=== PATIENT | male | born 1955 | race Caucasian/White ===

== ENCOUNTER 2019-07-22 14:13 | Observation (INO) | payer BC, SELFPAY ==
[2019-07-22 14:47] VITALS: BP 130/78; PULSE 59; RESP 18; TEMP 36.7; O2SAT 98; BMI 25.0
--- NOTE | 2019-07-22 14:56 | CA_ITS ---
APPROVED REPORT Meter Changes Records Clerk: HARVINDER Laterality: Bilateral Study Quality: Excellent Indications: tia Doppler Spectral Velocity Analysis dICA (R) 59.10/19.40 cm/s dICA (L) 72.30/25.90 cm/s Liat (R) 48.70/14.20 cm/s Liat (L) 67.50/17.10 cm/s pICA (R) 44.70/11.60 cm/s pICA (L) 84.40/24.20 cm/s dCCA (R) 76.20/14.50 cm/s dCCA (L) 105.70/19.40 cm/s pCCA (R) 90.00/18.40 cm/s pCCA (L) 107.70/21.30 cm/s Vert (R) 66.80/17.90 cm/s Vert (L) 59.10/19.70 cm/s ICA/CCA 0.80 ICA/CCA 0.80 Findings The right carotid arterial system appeared to be normal without stenosis of the bulb or internal carotid artery. The left carotid arterial system appeared to be normal without stenosis of the bulb or internal carotid artery. Antegrade flow seen bilateral vertebral arteries. Conclusion The right carotid arterial system appeared to be normal without stenosis of the bulb or internal carotid artery. The left carotid arterial system appeared to be normal without stenosis of the bulb or internal carotid artery. Antegrade flow seen bilateral vertebral arteries. Electronically signed by : Patrick Nunez MD 07/24/2019 16:45:06
--- NOTE | 2019-07-22 14:56 | CA_ITS ---
APPROVED REPORT EXAM: Comprehensive 2D, Doppler, and color-flow Echocardiogram Geodetic Technician: Betite Hall RT(R) Ht: 5 ft 10 in Wt: 174lbs BSA: 1.97 BP: 137/78 mmHg Indications: TIA 2D Dimensions LVDd 1.76 cm M: 4.2 - 5.9 M-Mode Dimensions RVDd 2.08 cm (0.9-2.6) LVDd 1.76 cm (3.5-5.7) LVDs 2.69 cm (3.5-5.7) IVSd 1.11 cm (0.6-1.1) PWd 1.22 cm (0.6-1.1) EF (Teich) 60.50% FS 31.90% EDV (Teich) 67.90 mL ESV (Teich) 26.80 mL LV Diastology E/A Ratio 1.17 Mitral Valve MV A Velocity 50.00 (40-130 cm/s) Left Ventricle Left atrium is mildly enlarged, left ventricle is normal size, there is no concentric left ventricular hypertrophy, visually estimated ejection fraction 55% with no regional wall motion abnormality, diastolic parameters are inconclusive. Right Ventricle Right atrium and right ventricular normal size and contractility. Aortic Valve Aortic valve is minimally thickened and fibrosed, there is no aortic stenosis or aortic insufficiency. Mitral valve is grossly normal, there is mild mitral regurgitation. Tricuspid Valve Tricuspid valve grossly normal, there is mild tricuspid regurgitation. Pulmonic Valve Pulmonic valve is poorly visualized. Great Vessels Aortic root is normal size. No significant pericardial effusion noted. Conclusion 1. Mildly enlarged left atrium, normal left ventricular size, visually estimated ejection fraction 55% with no regional wall motion abnormality, diastolic parameters are inconclusive. 2. Mild mitral and tricuspid regurgitation. 3. No significant pericardial effusion noted. Electronically signed by : Ken Abad, 07/22/2019 19:32:43
--- NOTE | 2019-07-22 14:59 | HMH.PNCARD ---
Subjective Date: 07/22/19 Time: 14:59 Principal diagnosis: Amaurosis fugax, recurrent TIA Interval history: 64 yo WM seen in office today as new patient for symptomatic carotid artery disease with amaurosis fugax of right eye and numbness/tingling of LUE over the last 1-2 wks despite both ASA and plavix therapy. Admitted for further evaluation and IV heparin therapy. Exam Vital signs and Labs for Last 24 Hours: Temp Pulse Resp BP Pulse Ox 98.0 F 59 L 18 130/78 98 07/22/19 14:47 07/22/19 14:47 07/22/19 14:47 07/22/19 14:47 07/22/19 14:47 I & O for Last 24 hours: Intake & Output 07/20/19 07/21/19 07/22/19 07/23/19 11:59 11:59 11:59 11:59 Weight 174 lb 3 oz - *Routine HEENT Exam Head: Present: normocephalic Eye: Present: EOMI, PERRL ENT: Present: mucous membranes moist - *Routine Neck Exam Present: supple. Absent: JVD, carotid bruit - *Routine Respiratory Exam Present: CTA bilaterally. Absent: accessory muscle use, rales, rhonchi, wheezes - *Routine Cardiovascular Exam Present: RRR. Absent: murmur, gallop, rubs - *Routine Abdominal Exam Present: soft. Absent: tenderness, distended, guarding - *Routine Extremities Exam Absent: edema, calf tenderness - *Routine Neurological Exam Present: alert, oriented X3, CN II-XII intact, moving all extremities, normal speech. Absent: motor deficit Progress Note: A&P (1) Amaurosis fugax of right eye Status: Acute Current Visit: Yes (2) TIA (transient ischemic attack) Status: Acute Current Visit: No (3) Numbness and tingling in left arm Status: Acute Current Visit: No (4) Hypertension Status: Acute Current Visit: Yes (5) Ex-smoker Status: Acute Current Visit: No (6) Frequent headaches Status: Acute Current Visit: No (7) GERD (gastroesophageal reflux disease) Status: Acute Current Visit: No Assessment and Plan for All Diagnoses:: 1. start IV heparin per pharmacy 2. Carotid ultrasound now and echo today. 3. Routine labs including CBC, BMP, thyroids 4. Likely will need carotid angiogram tomorrow pending above results 5. Continue lisinopril and pantoprazole
--- NOTE | 2019-07-22 15:29 | HMH.PHAINT ---
home medication reconciliation completed using a list from [facility]
--- NOTE | 2019-07-22 15:30 | HMH.PHAVTE ---
[facility] Pharmacy VTE Monitoring - Patient Demographics Admission date: 07/22/19 Report Date: 07/22/19 Time: 15:30 Allergies/Adverse Reactions: Patient Allergies No Known Allergies Allergy (Verified 07/22/19 13:16) Height: 1.78 m Weight: 79.01 kg Patient Problems: Current Active Problems Amaurosis fugax of right eye (Acute) Hypertension (Acute) - VTE Risk Was VTE Risk Assessment Performed: Yes VTE Score: 2 VTE Risk Level: Very Low Risk Clinical Trial Participant: No - Prophylaxis VTE Prophylaxis Ordered?: Yes Types of VTE Prophylaxis: TEDS Knee High Location of Applied Device: Bilateral Lower Extremeties
[2019-07-22 15:31] VITALS: PULSE 59; RESP 18; O2SAT 98
--- NOTE | 2019-07-22 15:47 | HMH.PHAHEP ---
[facility] Pharmacy Heparin Dosing - Demographic Data Admission date:: 07/22/19 Date: 07/22/19 Time: 15:47 Allergies/Adverse Reactions: Allergies Allergy/AdvReac Type Severity Reaction Status Date / Time No Known Allergies Allergy Verified 07/22/19 13:16 Height: 1.78 m Weight: 79 kg - Indication Medication therapy:: Heparin Patient Problems: Current Active Problems Amaurosis fugax of right eye (Acute) Hypertension (Acute) CVA?: No Bleeding problem?: No Kidney disease?: No MN?: No Desired PTT range:: 60-80 seconds - Monitoring Dose Monitor 1 Date: 07/22/19 Time: 16:00 PTT Result:: PTT NOT RECORDED. LOVENOX ORDERED AT 2044. Infusion Rate:: 1,000 UNITS/HR Comment:: 4,000 UNIT BOLUS Dose Monitor 2 Date: 07/22/19 Time: 22:00 Comment:: HEPARIN DRIP DISCONTINUED. LOVENOX ORDERED. - Core Measures Is INR > or = 2 at discharge?: No Were Heparin and Warfarin started on the same day?: No If not, why?: LOVENOX ORDERED
[2019-07-22 16:22] LABS: Basophils % 0.4 % (0.1-2.0); Eosinophils # 0.2 K/mm3 (0.0-0.4); Eosinophils % 2.3 % (0.1-12.0); Lymphocytes # 2.5 K/mm3 (0.7-4.5); Lymphocytes % 30.9 % (10-50); Mean Corpuscular HGB Conc 34.1 g/dL (31.8-35.4); Mean Corpuscular Hemoglobin 32.5 pg (27.0-31.2); Mean Corpuscular Volume 95.1 fl (80-94); Mean Platelet Volume 7.7 fl (7.4-10.4); Monocytes # 0.4 K/mm3 (0.1-1.0); Monocytes % 5.2 % (1.7-9.3); Neutrophils % 61.2 % (37.0-80.0); Platelet Count 288 K/mm3 (142-424); Red Blood Count 4.31 M/mm3 (4.60-6.20); Red Cell Distribution Width 12.6 % (11.5-17.5); White Blood Count 8.2 K/mm3 (4.8-10.8)
[2019-07-22 16:37] LABS: Alanine Aminotransferase 10 U/L (12-78); Albumin Level 3.4 g/dl (3.5-5.0); Alkaline Phosphatase 70 U/L (38-126); Anion Gap 7.2 mEq/L (5-15); Aspartate Amino Transferase 20 U/L (17-59); Bilirubin,Indirect 0.2 mg/dL (0.0-0.9); Bilirubin,Total 0.2 mg/dl (0.2-1.3); Bilirubin,Unconjugated 0.2 mg/dL (0.0-1.1); Blood Urea Nitrogen 11 mg/dl (9-20); Calcium 7.7 mg/dl (8.4-10.2); Carbon Dioxide 26 mmol/L (22.0-30.0); Chloride 111 mmol/L (98-107); Creatinine Clearance Estimated 83 mL/min (50-200); Estimated Glomerular Filt Rate 136 ml/min (>60); GFR (African American) 164 ML/MIN (>60); Glucose 69 mg/dl (74-100); Potassium 3.2 mmoL/L (3.5-5.1); Sodium 141 mmol/L (136-145); Total Protein,Serum 5.9 g/dl (6.3-8.2)
[2019-07-22 16:43] LABS: C-Reactive Protein 13.8 mg/L (0-4)
[2019-07-22 17:18] LABS: Erythrocyte Sedimentation Rate 63 mm/hr (0-20)
--- NOTE | 2019-07-22 17:21 | PC.NURSE ---
Pt was a new admit this shift. A&O X4. Pleasant and cooperative. 20 G peripheral IV inserted in the RT hand noted to be patent with no s/s of infiltration. NS infusing @ 50 ML/HR. Heparin infusing @ 20 ML/HR. Assessment reveals no abnormal findings. Pt ambulates throughout the room and to the bathroom independently. Pt's is currently at bedside. No complaints of pain or SOA. VSS. Call light within reach. Will continue to monitor.
[2019-07-22 19:53] VITALS: BP 148/80; PULSE 63; RESP 16; TEMP 36.4; O2SAT 97
--- NOTE | 2019-07-22 19:58 | CT_ITS ---
Procedure: CT ANGIO NECK CLINICAL HISTORY: TIA Headache, TIA, hypertension COMPARISON: No exams were available for comparison TECHNIQUE: IV Contrast: 100ml Optiray 350 Axial images obtained with sagittal and coronal reformats. All CT scans at the facility use one or more dose reduction, viz: automated exposure control, ma/kV adjustment per patient size (including targeted exams where dose is matched to indication, i.e. head), or iterative reconstruction technique. FINDINGS: The aortic arch and great vessels have an unremarkable appearance. The common carotids and vertebrals have an unremarkable appearance. The internal carotids are unremarkable. No stenosis, ulcerating plaques, or aneurysms are evident. No significant atherosclerotic plaque. Non angiographic findings: 3 mm nodule right upper lobe posteriorly. 3 mm noncalcified nodule left apex posteriorly the there are few scattered small mediastinal nodes but no adenopathy. Scattered small nodes are present in the neck. No mass abnormal fluid collection or acute bony anomalies. There is mild degenerative disc disease at C6-C7. IMPRESSION: Negative CT angiogram of the neck No stenosis or occlusion Dictated by: Patrick Nunez MD 07/23/2019 10:18 Electronically signed by Patrick Nunez MD in [place] 07/23/2019 10:18
--- NOTE | 2019-07-22 19:58 | CT_ITS ---
Procedure: CT ANGIO HEAD CLINICAL HISTORY: TIA TIA ease, hypertension, headache COMPARISON: No exams were available for comparison TECHNIQUE: IV Contrast: 100ml Optiray 350 Axial images obtained with sagittal and coronal reformats. All CT scans at the facility use one or more dose reduction, viz: automated exposure control, ma/kV adjustment per patient size (including targeted exams where dose is matched to indication, i.e. head), or iterative reconstruction technique. FINDINGS: No aneurysm, arteriovenous malformation or major intracranial occlusive process apparent. Vertebral basilar system has an unremarkable appearance. [id number] is patent. No evidence of sinus thrombosis No enhancing lesions. IMPRESSION: Negative CTA of the brain Dictated by: Patrick Nunez MD 07/23/2019 10:24 Electronically signed by Patrick Nunez MD in [place] 07/23/2019 10:24
[2019-07-22 20:00] VITALS: O2SAT 97
--- NOTE | 2019-07-22 21:01 | HMH.HP ---
*Admission Date: 07/22/19 *Chief complaint: tia *History of present illness: this wm has had several episodes of dec vision rt eye and dec use and sensation lt upper ext - pt w/o speech or lower ext sx - pt w/o chest pain- pt was seen by temo-ricki handley, recurrent Tia 64 yo WM seen in office today as new patient for symptomatic carotid artery disease with amaurosis fugax of right eye and numbness/tingling of LUE over the last 1-2 wks despite both ASA and plavix therapy. Admitted for further evaluation and IV heparin therapy. [facility] History I have reviewed the patient's past medical history: Yes Medical History: Reports:: Gastroesophageal Reflux Disease(GERD), Hypertension Denies:: Cancer, Diabetes Mellitus Type 1, Diabetes Mellitus Type 2, MRSA *Have you ever received a pneumonia vaccine?: Yes *Have you received a flu vaccine this season?: Yes Other Medical History: Reports: Arthritis Laterality Cases: Bilateral: Arthroscopy Knee Other Surgeries: Yes: Cholecystectomy Amputation: No Fractures: No - *Social History Educational Level: Completed High School Smoking Status: Former smoker Tobacco Type: cigarettes Alcohol Intake: current Alcohol Intake Frequency:: holidays/special occasions only Substance Use Type: denies use *Occupational Status:: employed Housing: house Household Members: spouse *Travel in the last 8 weeks: None Family Hx:: Diabetes, Heart Attack Review of Systems - Review of Systems Review of systems:: pertinent systems reviewed and negative unless documented below - Constitutional Denies fever(s) - Eyes Reports change in vision - ENT Denies dry mouth, Denies sore throat - *Cardiovascular Denies chest pain at rest - *Respiratory Denies cough, Denies shortness of breath - *Gastrointestinal Denies abdominal pain - *Genitourinary Denies blood in urine - *Musculoskeletal Denies joint pain, Denies neck pain - Integumentary/Breasts Denies rash - *Neurologic Reports other visual disturbances, Reports tingling/numbness/burning sensations, Denies seizure-like activity, Denies dizziness, Denies headache(s) - Psychiatric Denies anxiety Meds Home Medications Medication Instructions Recorded Confirmed Type Aspirin [Aspirin 325mg Tab] 325 mg PO DAILY 07/22/19 07/22/19 History celecoxib 200 mg capsule 200 mg PO DAILY cap 07/22/19 07/22/19 History clopidogrel 75 mg tablet 75 mg PO DAILY tab 07/22/19 07/22/19 History lisinopril 20 mg tablet 20 mg PO DAILY tab 07/22/19 07/22/19 History pantoprazole 40 mg tablet,delayed 40 mg PO DAILY tab 07/22/19 07/22/19 History release Allergies Allergy/AdvReac Type Severity Reaction Status Date / Time No Known Allergies Allergy Verified 07/22/19 13:16 Exam Vital signs and Labs for Last 24 Hours: Temp Pulse Resp BP Pulse Ox 97.5 F L 63 16 148/80 H 97 07/22/19 19:53 07/22/19 19:53 07/22/19 19:53 07/22/19 19:53 07/22/19 20:00 Laboratory Results - last 24 hr 07/22/19 15:55: ESR 63 H 07/22/19 15:55: C-Reactive Protein 13.8 H 07/22/19 15:55: WBC 8.2, RBC 4.31 L, Hgb 14.0 L, Hct 41.0 L, MCV 95.1 H, MCH 32.5 H, MCHC 34.1, RDW 12.6, Plt Count 288, MPV 7.7, Neut % (Auto) 61.2, Lymph % (Auto) 30.9, [place] % (Auto) 5.2, Eos % (Auto) 2.3, Baso % (Auto) 0.4, Neut # (Auto) 5.0, Lymph # (Auto) 2.5, [place] # (Auto) 0.4, Eos # (Auto) 0.2, Baso # (Auto) 0.0 07/22/19 15:55: Sodium 141, Potassium 3.2 L, Chloride 111 H, Carbon Dioxide 26, Anion Gap 7.2, BUN 11, Creatinine 0.60 L, Estimated Creat Clear 83, Estimated GFR 136, Est GFR ( Amer) 164, Glucose 69 L, Calcium 7.7 L, Total Bilirubin 0.2, Direct Bilirubin 0.0, Conjugated Bilirubin 0.0, Indirect Bilirubin 0.2, Unconjugated Bilirubin 0.2, AST 20, ALT 10 L, Alkaline Phosphatase 70, Total Protein 5.9 L, Albumin 3.4 L I & O for Last 24 hours: Intake & Output 05/07/21/19 07/22/19 07/23/19 11:59 11:59 11:59 11:59 Intake Total 136 / 136 Balance 136 / 136 Weight
[2019-07-22 22:21] LABS: Free Thyroxine Index 2.2 ug/dL (5.93-13.13); T4 (Thyroxine) 7.1 ug/dl (5.53-11.0); Triiodothryronine (T3) Uptake 31 % (23.5-40.5)
[2019-07-22 22:34] LABS: Thyroid Stimulating Hormone 2.15 uIU/mL (0.465-4.68)
[2019-07-23 03:58] VITALS: BP 154/87; PULSE 67; RESP 16; TEMP 36.6; O2SAT 96
--- NOTE | 2019-07-23 04:10 | PC.NURSE ---
Pt is A&Ox4 and has ambulated independently t/o shift and tolerated well. Pt has c/o headache 1x, medicated with Tylenol PO. Pt has denied any further vision complications. Regular heart rate and rhythm noted on cardiac auscultation. No edema noted of JVD. Lungs CTA, room air sats 96-97% t/o shift. Pt denies any SOB or dyspnea. Pt denies any N/V/D ABD is soft, non-tender with active bowel sounds, and pt reports last BM was 07/22/[address] to BLE. Heparin gtt discontinued at the beginning of the shift per [place] and new order for Lovenox and CT of head and neck with contrast. CT scans were completed this shift and pt tolerated well. New IV placed to pt's left AC. VSS, call light within reach, will continue to monitor.
--- NOTE | 2019-07-23 04:21 | PC.NURSE ---
All care provided by Claudio STEWART was supervised by Amee Ruggiero RN
[2019-07-23 05:14] VITALS: BMI 24.9
[2019-07-23 06:32] LABS: Chloride 107 mmol/L (98-107); Potassium 3.8 mmoL/L (3.5-5.1); Sodium 140 mmol/L (136-145)
[2019-07-23 06:35] LABS: Anion Gap 8.8 mEq/L (5-15); Blood Urea Nitrogen 11 mg/dl (9-20); Carbon Dioxide 28 mmol/L (22.0-30.0); Cholesterol 154 mg/dl (140-200); Creatinine Clearance Estimated 83 mL/min (50-200); Estimated Glomerular Filt Rate 114 ml/min (>60); GFR (African American) 137 ML/MIN (>60); Glucose 91 mg/dl (74-100); Triglycerides 74 mg/dl (30-150); VLDL Cholesterol 15 mg/dL (0-40)
[2019-07-23 06:36] LABS: Chol/HDL Ratio 2.4 (1-3.5); HDL Cholesterol 63 mg/dl (40-60)
[2019-07-23 06:46] LABS: Direct LDL Cholesterol 87.43 mg/dL (100-129)
[2019-07-23 06:49] LABS: Calcium 8.8 mg/dl (8.4-10.2)
[2019-07-23 07:06] LABS: Basophils % 0.3 % (0.1-2.0); Eosinophils # 0.3 K/mm3 (0.0-0.4); Hematocrit 40.3 % (42.0-52.0); Hemoglobin 13.9 g/dL (14.1-18.0); Lymphocytes # 3.1 K/mm3 (0.7-4.5); Lymphocytes % 34.6 % (10-50); Mean Corpuscular HGB Conc 34.4 g/dL (31.8-35.4); Mean Corpuscular Hemoglobin 31.7 pg (27.0-31.2); Monocytes # 0.5 K/mm3 (0.1-1.0); Neutrophils # 5.1 K/mm3 (1.8-7.8); Neutrophils % 57.1 % (37.0-80.0); Platelet Count 270 K/mm3 (142-424); Red Blood Count 4.38 M/mm3 (4.60-6.20)
[2019-07-23 08:00] VITALS: BP 138/82; PULSE 60; RESP 16; TEMP 36.8; O2SAT 98
--- NOTE | 2019-07-23 11:32 | HMH.PNCARD ---
Subjective Date: 07/23/19 Time: 11:10 Principal diagnosis: Amaurosis fugax, recurrent TIA Interval history: This is a 64-year-old white gentleman who was admitted to the hospital for questionable TIAs and amaurosis fugax. The patient did undergo a carotid ultrasound which was negative for carotid artery stenosis. He also had a CT of the head and a CT of the neck which was unremarkable and showed no stenosis of the internal carotid arteries. The patient CRP and sed rate are both elevated. He does complain of having joint pain all over his body. He was being treated for rheumatoid arthritis and was started on Celebrex and steroids several months ago. He states he has not been on steroids for at least 2 months or longer. The patient reports that he does get headaches especially at the back of his head. He states that he also does have jaw pain. He notices the more he eats the more sore his jaws do become. We do suspect that the patient has temporal arteritis since his ischemic work-up was negative. He denies any chest pain or pressure. He denies any shortness of breath or edema. He denies any fever, chills, nausea, vomiting, diarrhea, PND or orthopnea. Exam Vital signs and Labs for Last 24 Hours: Temp Pulse Resp BP Pulse Ox 98.3 F 60 16 138/82 98 07/23/19 08:00 07/23/19 08:00 07/23/19 08:00 07/23/19 08:00 07/23/19 08:00 Laboratory Results - last 24 hr 07/22/19 15:55: ESR 63 H 07/22/19 15:55: C-Reactive Protein 13.8 H 07/22/19 15:55: WBC 8.2, RBC 4.31 L, Hgb 14.0 L, Hct 41.0 L, MCV 95.1 H, MCH 32.5 H, MCHC 34.1, RDW 12.6, Plt Count 288, MPV 7.7, Neut % (Auto) 61.2, Lymph % (Auto) 30.9, [place] % (Auto) 5.2, Eos % (Auto) 2.3, Baso % (Auto) 0.4, Neut # (Auto) 5.0, Lymph # (Auto) 2.5, [place] # (Auto) 0.4, Eos # (Auto) 0.2, Baso # (Auto) 0.0 07/22/19 15:55: Sodium 141, Potassium 3.2 L, Chloride 111 H, Carbon Dioxide 26, Anion Gap 7.2, BUN 11, Creatinine 0.60 L, Estimated Creat Clear 83, Estimated GFR 136, Est GFR ( Amer) 164, Glucose 69 L, Calcium 7.7 L, Total Bilirubin 0.2, Direct Bilirubin 0.0, Conjugated Bilirubin 0.0, Indirect Bilirubin 0.2, Unconjugated Bilirubin 0.2, AST 20, ALT 10 L, Alkaline Phosphatase 70, Total Protein 5.9 L, Albumin 3.4 L 07/22/19 15:55: TSH 2.15, Free T4 Index 2.2 L, Thyroxine (T4) 7.1, T3 Uptake 31 07/22/19 16:30: APTT 07/23/19 05:48: WBC 9.0, RBC 4.38 L, Hgb 13.9 L, Hct 40.3 L, MCV 92.0, MCH 31.7 H, MCHC 34.4, RDW 13.0, Plt Count 270, MPV 8.0, Neut % (Auto) 57.1, Lymph % (Auto) 34.6, [place] % (Auto) 5.0, Eos % (Auto) 3.0, Baso % (Auto) 0.3, Neut # (Auto) 5.1, Lymph # (Auto) 3.1, Winn # (Auto) 0.5, Eos # (Auto) 0.3, Baso # (Auto) 0.0 07/23/19 05:48: Sodium 140, Potassium 3.8, Chloride 107, Carbon Dioxide 28, Anion Gap 8.8, BUN 11, Creatinine 0.70, Estimated Creat Clear 83, Estimated GFR 114, Est GFR ( Amer) 137, Glucose 91 D, Calcium 8.8 D, Magnesium 2.0, Triglycerides 74, Cholesterol 154, LDL Cholesterol Direct 87.43 L, VLDL Cholesterol 15, HDL Cholesterol 63 H, Cholesterol/HDL Ratio 2.4 I & O for Last 24 hours: Intake & Output 07/20/19 07/21/19 07/22/19 07/23/19 23:59 23:59 23:59 23:59 Intake Total 136 / 246 1202 / 1202 Balance 136 / 246 1202 / 1202 Weight 174 lb 2.643 oz 174 lb 2.996 oz Narrative: CTA neck shows: Negative CT angiogram of the neck No stenosis or occlusion CTA head shows: Negative CTA of the brain Echo shows: 1. Mildly enlarged left atrium, normal left ventricular size, visually estimated ejection fraction 55% with no regional wall motion abnormality, diastolic parameters are inconclusive. 2. Mild mitral and tricuspid regurgitation. 3. No significant pericardial effusion noted. Prelim CNI is negative for stenosis. Official report is still pending. - Constitutional no acute distress, average body habitus - *Routine HEENT Exam Head: Present: normocephalic, atraumatic Eye: Present: EOMI, PERRL ENT: Present: mucous membranes moist - *R
--- NOTE | 2019-07-23 12:10 | HMH.ACPN2 ---
Internal Medicine - PN: Subj *Date: 07/23/19 *Time: 12:10 Interval history: 64-year-old male patient sitting up in bed respirations easy even, denies any occurrences of visual difficulties during the night. Exam Vital signs and Labs for Last 24 Hours: Temp Pulse Resp BP Pulse Ox 98.3 F 60 16 138/82 98 07/23/19 08:00 07/23/19 08:00 07/23/19 08:00 07/23/19 08:00 07/23/19 08:00 Laboratory Results - last 24 hr 07/22/19 15:55: ESR 63 H 07/22/19 15:55: C-Reactive Protein 13.8 H 07/22/19 15:55: WBC 8.2, RBC 4.31 L, Hgb 14.0 L, Hct 41.0 L, MCV 95.1 H, MCH 32.5 H, MCHC 34.1, RDW 12.6, Plt Count 288, MPV 7.7, Neut % (Auto) 61.2, Lymph % (Auto) 30.9, [place] % (Auto) 5.2, Eos % (Auto) 2.3, Baso % (Auto) 0.4, Neut # (Auto) 5.0, Lymph # (Auto) 2.5, [place] # (Auto) 0.4, Eos # (Auto) 0.2, Baso # (Auto) 0.0 07/22/19 15:55: Sodium 141, Potassium 3.2 L, Chloride 111 H, Carbon Dioxide 26, Anion Gap 7.2, BUN 11, Creatinine 0.60 L, Estimated Creat Clear 83, Estimated GFR 136, Est GFR ( Amer) 164, Glucose 69 L, Calcium 7.7 L, Total Bilirubin 0.2, Direct Bilirubin 0.0, Conjugated Bilirubin 0.0, Indirect Bilirubin 0.2, Unconjugated Bilirubin 0.2, AST 20, ALT 10 L, Alkaline Phosphatase 70, Total Protein 5.9 L, Albumin 3.4 L 07/22/19 15:55: TSH 2.15, Free T4 Index 2.2 L, Thyroxine (T4) 7.1, T3 Uptake 31 07/22/19 16:30: APTT 07/23/19 05:48: WBC 9.0, RBC 4.38 L, Hgb 13.9 L, Hct 40.3 L, MCV 92.0, MCH 31.7 H, MCHC 34.4, RDW 13.0, Plt Count 270, MPV 8.0, Neut % (Auto) 57.1, Lymph % (Auto) 34.6, [place] % (Auto) 5.0, Eos % (Auto) 3.0, Baso % (Auto) 0.3, Neut # (Auto) 5.1, Lymph # (Auto) 3.1, [place] # (Auto) 0.5, Eos # (Auto) 0.3, Baso # (Auto) 0.0 07/23/19 05:48: Sodium 140, Potassium 3.8, Chloride 107, Carbon Dioxide 28, Anion Gap 8.8, BUN 11, Creatinine 0.70, Estimated Creat Clear 83, Estimated GFR 114, Est GFR ( Amer) 137, Glucose 91 D, Calcium 8.8 D, Magnesium 2.0, Triglycerides 74, Cholesterol 154, LDL Cholesterol Direct 87.43 L, VLDL Cholesterol 15, HDL Cholesterol 63 H, Cholesterol/HDL Ratio 2.4 I & O for Last 24 hours: Intake & Output 07/20/19 07/21/19 07/22/19 07/23/19 23:59 23:59 23:59 23:59 Intake Total 136 / 246 1202 / 1202 Balance 136 / 246 1202 / 1202 Weight 174 lb 2.643 oz 174 lb 2.996 oz - Constitutional no acute distress - *Routine HEENT Exam Head: Present: normocephalic, atraumatic. Absent: scalp tenderness, tenderness of temporal artery Eye: Present: EOMI, PERRL ENT: Present: mucous membranes moist. Absent: sinus tenderness - *Routine Neck Exam Present: supple, full ROM, trachea midline. Absent: JVD, tracheal deviation - *Routine Respiratory Exam Present: CTA bilaterally. Absent: accessory muscle use - *Routine Cardiovascular Exam Present: RRR - *Routine Abdominal Exam Present: soft, normoactive bowel sounds. Absent: tenderness, firm - Routine Back/Spine/Pelvis Exam Back/Spine: Present: full ROM. Absent: CVA tenderness - *Routine Skin Exam Present: intact. Absent: jaundice - *Routine Neurological Exam Present: alert, oriented X3. Absent: motor deficit - Routine Psychiatric Exam Present: normal affect, normal thought process Assessment and Plan (1) Temporal arteritis Current visit: Yes Status: Acute Category: Medical Code(s): M31.6 - Other giant cell arteritis (2) Elevated sed rate Current visit: Yes Status: Acute Category: Medical Code(s): R70.0 - Elevated erythrocyte sedimentation rate (3) Elevated C-reactive protein (CRP) Current visit: Yes Status: Acute Category: Medical Code(s): R79.82 - Elevated C-reactive protein (CRP) (4) Jaw pain Current visit: Yes Status: Acute Category: Medical Code(s): R68.84 - Jaw pain (5) GERD (gastroesophageal reflux disease) Current visit: No Status: Acute Qualifiers: Esophagitis presence: esophagitis presence not specified Qualified Code(s): K21.9 - Gastro-esophageal reflux disease without eso
[2019-07-23 16:00] VITALS: BP 127/86; PULSE 72; RESP 17; TEMP 36.6; O2SAT 98
--- NOTE | 2019-07-23 17:55 | PC.NURSE ---
PT HAS DONE WELL TODAY. ANTICIPATES HIS PROCEDURE TOMORROW. ONLY COMPLAINT THIS SHIFT WAS A HEADACHE, PRN TYLENOL GIVEN. PT SHOWERED TODAY INDEPENDENTLY, TOLERATED WELL. VSS. WILL CONT. TO MONITOR.
--- NOTE | 2019-07-23 19:11 | PC.NURSE ---
report given to juani
[2019-07-23 19:29] VITALS: BP 152/61; PULSE 82; RESP 16; TEMP 36.6; O2SAT 97
[2019-07-24] VITALS (20 sets, daily range): BP systolic 121–150; BP diastolic 66–87; PULSE 60–92; RESP 12–18; TEMP 36.4–36.9; O2SAT 94–99; BMI 24.3
--- NOTE | 2019-07-24 06:10 | PC.NURSE ---
A&OX4. PT TOLERATING RA WELL. PT HAS SLEPT T/O MAJORITY OF SHIFT. PT HAS HAD NO C/O PAIN, H/A, OR SOA THIS SHIFT, AND HAS REPORTED NO VISUAL DISTURBANCES. PT TOLERATING NPO DIET WELL. NO COMPLAINTS THUS FAR, VSS WILL CONTINUE TO MONITOR.
[2019-07-24 06:26] LABS: Basophils % 0.1 % (0.1-2.0); Eosinophils % 0.1 % (0.1-12.0); Hematocrit 42.5 % (42.0-52.0); Hemoglobin 14.3 g/dL (14.1-18.0); Lymphocytes # 1.5 K/mm3 (0.7-4.5); Lymphocytes % 9.7 % (10-50); Mean Corpuscular HGB Conc 33.7 g/dL (31.8-35.4); Mean Corpuscular Hemoglobin 32.3 pg (27.0-31.2); Mean Corpuscular Volume 95.7 fl (80-94); Mean Platelet Volume 7.7 fl (7.4-10.4); Monocytes # 0.2 K/mm3 (0.1-1.0); Monocytes % 1.5 % (1.7-9.3); Neutrophils # 13.8 K/mm3 (1.8-7.8); Neutrophils % 88.7 % (37.0-80.0); Platelet Count 302 K/mm3 (142-424); Red Blood Count 4.44 M/mm3 (4.60-6.20); Red Cell Distribution Width 12.6 % (11.5-17.5); White Blood Count 15.6 K/mm3 (4.8-10.8)
[2019-07-24 06:30] LABS: MANUAL DIFFERENTIAL MANUAL DIFFERENTIAL (MANUAL DIFF)
[2019-07-24 06:34] LABS: Anion Gap 10.6 mEq/L (5-15); Blood Urea Nitrogen 14 mg/dl (9-20); Calcium 9.2 mg/dl (8.4-10.2); Carbon Dioxide 25 mmol/L (22.0-30.0); Chloride 107 mmol/L (98-107); Creatinine Clearance Estimated 83 mL/min (50-200); Estimated Glomerular Filt Rate 114 ml/min (>60); GFR (African American) 137 ML/MIN (>60); Glucose 158 mg/dl (74-100); Potassium 3.6 mmoL/L (3.5-5.1); Sodium 139 mmol/L (136-145)
[2019-07-24 09:09] LABS: Coronavirus 19 IgG Antibody Negative (Negative); Coronavirus 19 IgM Antibody Negative (Negative)
[2019-07-24 09:37] LABS: Lymphocytes % 9 % (10-50); Neutrophils % 91 % (42-76); Platelet Estimate Normal; RBC Morphology Normal; Total Cells Counted 100
--- NOTE | 2019-07-24 10:09 | P.PN_ITS ---
[facility] Anesthesia Checklist - Structural Data Admitted From: Inpatient Planned Operative Procedure/s: temporal artery biopsy Consent for Planned Operative Procedure(s) Verified: Yes - Airway Assessment C-Spine Mobility Assessed: Yes TMJ Mobility Assessed: Yes Dentition: Good Dentition - Neurological Assessment Level of Consciousness: Awake, Alert, Appropriate - Anesthesia Plan Anesthesia Risk discussed: Yes Anesthesia Plan: Verified ASA Class: II Anesthesia Type: General [facility] History I have reviewed the patient's past medical history: Yes Medical History: Reports:: Gastroesophageal Reflux Disease(GERD), Hypertension Denies:: Cancer, Diabetes Mellitus Type 1, Diabetes Mellitus Type 2, MRSA *Have you ever received a pneumonia vaccine?: Yes *Have you received a flu vaccine this season?: Yes Other Medical History: Reports: Arthritis Anesthesia experience/problems:: none Laterality Cases: Bilateral: Arthroscopy Knee Other Surgeries: Yes: Cholecystectomy Amputation: No Fractures: No - *Social History Educational Level: Completed High School Smoking Status: Former smoker Tobacco Type: cigarettes Alcohol Intake: current Alcohol Intake Frequency:: holidays/special occasions only Substance Use Type: denies use *Occupational Status:: employed Housing: house Household Members: spouse *Travel in the last 8 weeks: None Family Hx:: Diabetes, Heart Attack
--- NOTE | 2019-07-24 10:35 | P.PN_ITS ---
[facility] Anesthesia Record Part I Intake, IV Amount: 600 Estimated blood loss (mL): 0 Urine output (mL): 0 Blood Pressure: 134/74 SaO2: 95 Pulse Rate: 89 Respiratory Rate: 12 Temperature: 98 F Patient is:: Awake, Stable Stable to PACU at:: 10:30
--- NOTE | 2019-07-24 13:02 | HMH.GSCON ---
*Admission Date: 07/22/19 *Reason for consult:: 1. Right kervin-cranial headaches 2. Right temporal arteritis *History of present illness: Pt presented with amourosis fugax, Right kervin-cranial headaches, and Right temporal arteritis Review of Systems - Review of Systems Review of systems:: pertinent systems reviewed and negative unless documented below - Eyes Reports other - *Neurologic Reports other visual disturbances, Reports tingling/numbness/burning sensations, Denies seizure-like activity, Denies dizziness, Denies headache(s) [facility] History Medical History: Reports:: Gastroesophageal Reflux Disease(GERD), Hypertension Denies:: Cancer, Diabetes Mellitus Type 1, Diabetes Mellitus Type 2, MRSA *Have you ever received a pneumonia vaccine?: Yes *Have you received a flu vaccine this season?: Yes Other Medical History: Reports: Arthritis Anesthesia experience/problems:: none Laterality Cases: Bilateral: Arthroscopy Knee Other Surgeries: Yes: Cholecystectomy Amputation: No Fractures: No - *Social History Educational Level: Completed High School Smoking Status: Former smoker Tobacco Type: cigarettes Alcohol Intake: current Alcohol Intake Frequency:: holidays/special occasions only Substance Use Type: denies use *Occupational Status:: employed Housing: house Household Members: spouse *Travel in the last 8 weeks: None Family Hx:: Diabetes, Heart Attack Meds Home Medications Medication Instructions Recorded Confirmed Type Aspirin [Aspirin 325mg Tab] 325 mg PO DAILY 07/22/19 07/22/19 History celecoxib 200 mg capsule 200 mg PO DAILY cap 07/22/19 07/22/19 History clopidogrel 75 mg tablet 75 mg PO DAILY tab 07/22/19 07/22/19 History lisinopril 20 mg tablet 20 mg PO DAILY tab 07/22/19 07/22/19 History pantoprazole 40 mg tablet,delayed 40 mg PO DAILY tab 07/22/19 07/22/19 History release Allergies Allergy/AdvReac Type Severity Reaction Status Date / Time No Known Allergies Allergy Verified 07/22/19 13:16 Exam Vital signs and Labs for Last 24 Hours: Temp Pulse Resp BP Pulse Ox 97.5 F L 71 16 130/80 99 07/24/19 11:50 07/24/19 11:50 07/24/19 11:50 07/24/19 11:50 07/24/19 11:50 Laboratory Results - last 24 hr 07/24/19 05:40: WBC 15.6 H D, RBC 4.44 L, Hgb 14.3, Hct 42.5, MCV 95.7 H, MCH 32.3 H, MCHC 33.7, RDW 12.6, Plt Count 302, MPV 7.7, Neut % (Auto) 88.7 H, Lymph % (Auto) 9.7 L, [place] % (Auto) 1.5 L, Eos % (Auto) 0.1, Baso % (Auto) 0.1, Neut # (Auto) 13.8 H, Lymph # (Auto) 1.5, [place] # (Auto) 0.2, Eos # (Auto) 0.0, Baso # (Auto) 0.0, Total Counted 100, Neutrophils % (Manual) 91 H, Lymphocytes % (Manual) 9 L, Platelet Estimate Normal, RBC Morphology Normal 07/24/19 05:40: Sodium 139, Potassium 3.6, Chloride 107, Carbon Dioxide 25, Anion Gap 10.6, BUN 14 D, Creatinine 0.70, Estimated Creat Clear 83, Estimated GFR 114, Est GFR ( Amer) 137, Glucose 158 H D, Calcium 9.2 07/24/19 08:35: SARS-CoV-2 IgG Ab (Rapid) Negative, SARS-CoV-2 IgM Ab (Rapid) Negative I & O for Last 24 hours: Intake & Output 07/21/19 07/22/19 07/23/19 07/24/19 23:59 23:59 23:59 23:59 Intake Total 136 / 246 1202 / 2315 1713 / 1713 Balance 136 / 246 1202 / 2315 1713 / 1713 Weight 174 lb 2.643 oz 174 lb 2.996 oz 170 lb 6 oz - *Routine HEENT Exam Comments: The patient's sedimentation rate was elevated at 69, and his white blood count was elevated at 15.3. There was no evidence of any cervical lymphadenopathy and he had been cleared for any possible cardiac and neurologic disorders. Lamination revealed some tenderness over the right temporal artery, there was no cervical lymphadenopathy and the remainder of the head neck examination was normal. Because of that finding he will be scheduled for temporal artery biopsy in order to confirm the diagnosis. Results - Labs 07/24/19 05:40 07/24/19 05:40 Laboratory Results - last 24 hr 07/24/19 05:40: WBC 15.6 H D, RBC 4.44 L, Hgb 14.3, Hct 42.5, MC
--- NOTE | 2019-07-24 13:07 | HMH.OPNOTE ---
Date of procedure: 07/24/19 Pre-op Diagnosis:: 1. right Hemicranial headaches 2. Right temporal arteritis 3. amaurosis fugax Post-op Diagnosis:: same Procedure performed:: 1. Temporal artery biopsy under general anesthetic Surgeon:: Kelton Narayan MD [employer]IVE OFFICER:: Pedro Beckford Anesthesia: GETA Estimated blood loss (mL): 6 Operative findings:: same Operative note:: With patient under general anesthesia the right ear, preauricular and postauricular areas were prepped with Betadine. A cottonoid was placed in the ear canal to avoid fluids from collecting. A preauricular incision was marked out and it extended into the temporal area superiorly. The chayo out was incised and skin and subcutaneous tissue was elevated, the right temporal vein was identified along with several tributaries. The vein was then coagulated and displaced so that one could get at the deep temporal tissues in the right temporal artery was then identified. It was clamped superiorly and inferiorly and the segment was excised for histopathology. Bleeding was stopped with bipolar cautery. Surgicel snow was placed in the cavity. The incision was repaired with 4-0 nylon sutures. A Dermabond dressing is applied. Patient tolerated the procedure well and was sent to recovery in good general condition. Condition: stable Disposition: PACU Complications:: none
--- NOTE | 2019-07-24 13:41 | HMH.PNCARD ---
Subjective Date: 07/24/19 Time: 11:40 Principal diagnosis: Amaurosis fugax, recurrent TIA Interval history: This is a 64-year-old white gentleman who was admitted to the hospital for right-sided amaurosis fugax. The patient was ruled out for carotid disease or a stroke. The patient did have an elevated CRP and sed rate. He was complaining of joint pain as well as headaches and jaw pain. The patient is being treated for suspected temporal arteritis. He has undergone temporal artery biopsy this morning with Dr. Narayan. Yesterday he was started on high-dose steroids. Today he states he feels great. He states his joint pain has significantly improved since starting the steroids. He states that he is ready to go home. He denies any chest pain or pressure. He denies any shortness of breath or edema. He denies any fever, chills, nausea, vomiting, diarrhea, PND or orthopnea. Exam Vital signs and Labs for Last 24 Hours: Temp Pulse Resp BP Pulse Ox 97.5 F L 71 16 130/80 99 07/24/19 11:50 07/24/19 11:50 07/24/19 11:50 07/24/19 11:50 07/24/19 11:50 Laboratory Results - last 24 hr 07/24/19 05:40: WBC 15.6 H D, RBC 4.44 L, Hgb 14.3, Hct 42.5, MCV 95.7 H, MCH 32.3 H, MCHC 33.7, RDW 12.6, Plt Count 302, MPV 7.7, Neut % (Auto) 88.7 H, Lymph % (Auto) 9.7 L, [place] % (Auto) 1.5 L, Eos % (Auto) 0.1, Baso % (Auto) 0.1, Neut # (Auto) 13.8 H, Lymph # (Auto) 1.5, [place] # (Auto) 0.2, Eos # (Auto) 0.0, Baso # (Auto) 0.0, Total Counted 100, Neutrophils % (Manual) 91 H, Lymphocytes % (Manual) 9 L, Platelet Estimate Normal, RBC Morphology Normal 07/24/19 05:40: Sodium 139, Potassium 3.6, Chloride 107, Carbon Dioxide 25, Anion Gap 10.6, BUN 14 D, Creatinine 0.70, Estimated Creat Clear 83, Estimated GFR 114, Est GFR ( Amer) 137, Glucose 158 H D, Calcium 9.2 07/24/19 08:35: SARS-CoV-2 IgG Ab (Rapid) Negative, SARS-CoV-2 IgM Ab (Rapid) Negative I & O for Last 24 hours: Intake & Output 07/21/19 07/22/19 07/23/19 07/24/19 23:59 23:59 23:59 23:59 Intake Total 136 / 246 1202 / 2315 1713 / 1713 Balance 136 / 246 1202 / 2315 1713 / 1713 Weight 174 lb 2.643 oz 174 lb 2.996 oz 170 lb 6 oz - Constitutional no acute distress, average body habitus - *Routine HEENT Exam Head: Present: normocephalic, atraumatic Eye: Present: EOMI, PERRL ENT: Present: mucous membranes moist - *Routine Neck Exam Present: supple, full ROM, normal carotid upstroke. Absent: JVD, carotid bruit, lymphadenopathy - *Routine Respiratory Exam Present: CTA bilaterally - *Routine Cardiovascular Exam Present: RRR, Normal S1, Normal S2. Absent: murmur - *Routine Abdominal Exam Present: soft, normoactive bowel sounds. Absent: tenderness - *Routine Extremities Exam Present: full ROM, pulses intact, normal capillary refill. Absent: cyanosis, clubbing, edema - *Routine Skin Exam Present: intact, warm. Absent: erythema, rash - *Routine Neurological Exam Present: alert, oriented X3, CN II-XII intact. Absent: sensory deficit, motor deficit Progress Note: A&P (1) Temporal arteritis Status: Acute Current Visit: Yes (2) Elevated sed rate Status: Acute Current Visit: Yes (3) Elevated C-reactive protein (CRP) Status: Acute Current Visit: Yes (4) Jaw pain Status: Acute Current Visit: Yes (5) GERD (gastroesophageal reflux disease) Status: Acute Current Visit: No (6) Amaurosis fugax of right eye Status: Acute Current Visit: Yes (7) Numbness and tingling in left arm Status: Acute Current Visit: No (8) Hypertension Status: Acute Current Visit: Yes (9) Ex-smoker Status: Acute Current Visit: No (10) Frequent headaches Status: Acute Current Visit: No Assessment and Plan for All Diagnoses:: Plan: 1. Patient was admitted to the hospital for questionable TIAs and amaurosis fugax. The patient has been ruled out for an ischemic etiology of the amaurosis fugax. He has no evidence of a stroke and no
--- NOTE | 2019-07-24 17:00 | HMH.DCSUM ---
General - General Admission date:: 07/22/19 Discharge date: 07/24/19 HPI HPI: this wm has had several episodes of dec vision rt eye and dec use and sensation lt upper ext - pt w/o speech or lower ext sx - pt w/o chest pain- pt was seen by saad handley, recurrent Tia 64 yo WM seen in office today as new patient for symptomatic carotid artery disease with amaurosis fugax of right eye and numbness/tingling of LUE over the last 1-2 wks despite both ASA and plavix therapy. Admitted for further evaluation and IV heparin therapy. Hospital Course Hospital Course: Laboratory Tests 07/22/19 07/22/19 07/22/19 15:55 15:55 15:55 WBC 8.2 RBC 4.31 L Hgb 14.0 L Hct 41.0 L MCV 95.1 H MCH 32.5 H MCHC 34.1 RDW 12.6 Plt Count 288 MPV 7.7 Neut % (Auto) 61.2 Lymph % (Auto) 30.9 [place] % (Auto) 5.2 Eos % (Auto) 2.3 Baso % (Auto) 0.4 Neut # (Auto) 5.0 Lymph # (Auto) 2.5 [place] # (Auto) 0.4 Eos # (Auto) 0.2 Baso # (Auto) 0.0 Total Counted Neutrophils % (Manual) Lymphocytes % (Manual) Platelet Estimate RBC Morphology ESR 63 H APTT Sodium Potassium Chloride Carbon Dioxide Anion Gap BUN Creatinine Estimated Creat Clear Estimated GFR Est GFR ( Amer) Glucose Calcium Magnesium Total Bilirubin Direct Bilirubin Conjugated Bilirubin Indirect Bilirubin Unconjugated Bilirubin AST ALT Alkaline Phosphatase C-Reactive Protein 13.8 H Total Protein Albumin Triglycerides Cholesterol LDL Cholesterol Direct VLDL Cholesterol HDL Cholesterol Cholesterol/HDL Ratio TSH Free T4 Index Thyroxine (T4) T3 Uptake SARS-CoV-2 IgG Ab (Rapid) SARS-CoV-2 IgM Ab (Rapid) 07/22/19 07/22/19 07/22/19 15:55 15:55 16:30 WBC RBC Hgb Hct MCV MCH MCHC RDW Plt Count MPV Neut % (Auto) Lymph % (Auto) [place] % (Auto) Eos % (Auto) Baso % (Auto) Neut # (Auto) Lymph # (Auto) [place] # (Auto) Eos # (Auto) Baso # (Auto) Total Counted Neutrophils % (Manual) Lymphocytes % (Manual) Platelet Estimate RBC Morphology ESR APTT Sodium 141 Potassium 3.2 L Chloride 111 H Carbon Dioxide 26 Anion Gap 7.2 BUN 11 Creatinine 0.60 L Estimated Creat Clear 83 Estimated GFR 136 Est GFR ( Amer) 164 Glucose 69 L Calcium 7.7 L Magnesium Total Bilirubin 0.2 Direct Bilirubin 0.0 Conjugated Bilirubin 0.0 Indirect Bilirubin 0.2 Unconjugated Bilirubin 0.2 AST 20 ALT 10 L Alkaline Phosphatase 70 C-Reactive Protein Total Protein 5.9 L Albumin 3.4 L Triglycerides Cholesterol LDL Cholesterol Direct VLDL Cholesterol HDL Cholesterol Cholesterol/HDL Ratio TSH 2.15 Free T4 Index 2.2 L Thyroxine (T4) 7.1 T3 Uptake 31 SARS-CoV-2 IgG Ab (Rapid) SARS-CoV-2 IgM Ab (Rapid) 07/23/19 07/23/19 07/24/19 05:48 05:48 05:40 WBC 9.0 15.6 H D RBC 4.38 L 4.44 L Hgb 13.9 L 14.3 Hct 40.3 L 42.5 MCV 92.0 95.7 H MCH 31.7 H 32.3 H MCHC 34.4 33.7 RDW 13.0 12.6 Plt Count 270 302 MPV 8.0 7.7 Neut % (Auto) 57.1 88.7 H Lymph % (Auto) 34.6 9.7 L [place] % (Auto) 5.0 1.5 L Eos % (Auto) 3.0 0.1 Baso % (Auto) 0.3 0.1 Neut # (Auto) 5.1 13.8 H Lymph # (Auto) 3.1 1.5 [place] # (Auto) 0.5 0.2 Eos # (Auto) 0.3 0.0 Baso # (Auto) 0.0 0.0 Total Counted 100 Neutrophils % (Manual) 91 H Lymphocytes % (Manual) 9 L Platelet Estimate Normal RBC Morphology Normal ESR APTT Sodium 140 Potassium 3.8 Chloride 107 Carbon Dioxide 28 Anion Gap 8.8 BUN 11 Creatinine 0.70 Estimated Creat Clear 83 Estimated GFR 114 Est GFR ( Amer) 137 Glucose 91 D Calcium 8.8 D Magne
--- NOTE | 2019-07-25 17:09 | P.PN_ITS ---
[facility] Anesthesia Record Part II Discharge Time: 11:00 Destination: floor PACU nurse assessment reviewed?: Yes Patient Condition:: Good Anesthesia Complications:: None Swallowing reflex intact?: Yes Cyanosis?: No Blood Pressure: 139/80 Pulse Rate: 66 Temperature: 97.7 F Mental Status: Alert & Oriented Pain level:: 0 Nausea and/or vomitting:: None Intake, IV Amount: 600
[2019-07-25 17:10] VITALS: BP 139/80; PULSE 66; TEMP 36.5
== END 2019-07-24 18:50 | disposition home or self-care (01) ==
PROVIDERS: Nurse Practitioner Family; Otolaryngology; Physician Assistant; Admitting Provider Emergency Medicine; PCP Family Medicine; Visit Provider Emergency Medicine
PROC: (CPT 37609; principal; 2019-07-24 08:45)
DX: G45.3 Amaurosis fugax (principal); I10 Essential (primary) hypertension; R20.2 Paresthesia of skin; H53.8 Other visual disturbances; Z87.891 Personal history of nicotine dependence; Z79.02 Long term (current) use of antithrombotics/antiplatelets; Z79.82 Long term (current) use of aspirin; M31.6 Other giant cell arteritis
CPT/HCPCS: 37609; 36415; 70496; 70498; 80048; 80061; 80076; 83735; 84436; 84443; 84479; 85007; 85025; 85651; 85730; 86140; 86328; 93306; 93880; G0378; J2405; Q9967

== ENCOUNTER → 2022-07-10 23:23 | Outpatient (CLI) | payer MEDICARE, OTHER, SELFPAY ==
[2022-07-10 18:53] LABS: Basophils % 0.2 % (0.1-2.0); Eosinophils % 0.6 % (0.1-12.0); Hematocrit 45.4 % (42.0-52.0); Hemoglobin 14.5 g/dL (14.1-18.0); Lymphocytes # 1.7 K/mm3 (0.7-4.5); Lymphocytes % 28.3 % (10-50); Mean Corpuscular HGB Conc 31.9 g/dL (31.8-35.4); Mean Corpuscular Hemoglobin 32.3 pg (27.0-31.2); Mean Corpuscular Volume 101.2 fl (80-94); Mean Platelet Volume 9.4 fl (7.4-10.4); Monocytes # 0.4 K/mm3 (0.1-1.0); Monocytes % 6.1 % (1.7-9.3); Neutrophils % 64.8 % (37.0-80.0); Platelet Count 269 K/mm3 (142-424); Red Blood Count 4.48 M/mm3 (4.60-6.20); Red Cell Distribution Width 12.8 % (11.5-17.5); White Blood Count 6.1 K/mm3 (4.8-10.8)
[2022-07-10 19:23] LABS: Alanine Aminotransferase 22 U/L (12-78); Albumin Level 4.4 g/dl (3.5-5.0); Albumin/Globulin Ratio 1.8 (1.1-1.8); Alkaline Phosphatase 68 U/L (38-126); Anion Gap 15.9 mEq/L (5-15); Aspartate Amino Transferase 37 U/L (17-59); Bilirubin,Total 0.8 mg/dl (0.2-1.3); Blood Urea Nitrogen 15 mg/dl (9-20); Calcium 8.9 mg/dl (8.4-10.2); Carbon Dioxide 28 mmol/L (22.0-30.0); Chloride 98 mmol/L (98-107); Cholesterol 219 mg/dl (140-200); Estimated Glomerular Filt Rate 96 ml/min (>60); GFR (African American) 117 ML/MIN (>60); Globulin 2.4 g/dL (1.3-3.2); Glucose 97 mg/dl (74-100); Potassium 3.9 mmoL/L (3.5-5.1); Sodium 138 mmol/L (136-145); Total Protein,Serum 6.8 g/dl (6.3-8.2); Triglycerides 53 mg/dl (30-150); VLDL Cholesterol 11 mg/dL (0-40)
[2022-07-10 19:33] LABS: Direct LDL Cholesterol 89.89 mg/dL (100-129)
[2022-07-10 19:40] LABS: Chol/HDL Ratio 1.8 (1-3.5); HDL Cholesterol 123 mg/dl (40-60)
[2022-07-10 19:54] LABS: Prostate Specific Ag Screen 1.5 ng/ml (0.0-4.0); Thyroid Stimulating Hormone 1.15 uIU/mL (0.465-4.68)
[2022-07-10 20:11] LABS: Erythrocyte Sedimentation Rate 3 mm/hr (0-20)
[2022-07-14 00:06] LABS: Testosterone,Free 3.7 pg/mL (6.6-18.1)
== END ==
PROVIDERS: PCP Family Medicine; Visit Provider Family Medicine
DX: H53.8 Other visual disturbances (principal); Z00.00 Encounter for general adult medical examination without abnormal findings; G45.9 Transient cerebral ischemic attack, unspecified; R20.0 Anesthesia of skin; R20.2 Paresthesia of skin; Z12.5 Encounter for screening for malignant neoplasm of prostate
CPT/HCPCS: 80053; 80061; 84402; 84443; 85025; 85651; G0103

== ENCOUNTER → 2022-09-25 11:28 | Outpatient (CLI) | payer MEDICARE, OTHER, SELFPAY ==
[2022-09-25 18:49] LABS: Basophils % 0.2 % (0.1-2.0); Eosinophils # 0.1 K/mm3 (0.0-0.4); Eosinophils % 0.7 % (0.1-12.0); Hematocrit 45.5 % (42.0-52.0); Hemoglobin 14.6 g/dL (14.1-18.0); Lymphocytes # 2.1 K/mm3 (0.7-4.5); Lymphocytes % 30.1 % (10-50); Mean Corpuscular Hemoglobin 31.8 pg (27.0-31.2); Mean Corpuscular Volume 99.2 fl (80-94); Mean Platelet Volume 10.8 fl (7.4-10.4); Monocytes # 0.3 K/mm3 (0.1-1.0); Monocytes % 4.6 % (1.7-9.3); Neutrophils # 4.4 K/mm3 (1.8-7.8); Neutrophils % 64.3 % (37.0-80.0); Platelet Count 247 K/mm3 (142-424); Red Blood Count 4.58 M/mm3 (4.60-6.20); Red Cell Distribution Width 12.8 % (11.5-17.5); White Blood Count 6.8 K/mm3 (4.8-10.8)
[2022-09-25 19:11] LABS: Alanine Aminotransferase 19 U/L (12-78); Albumin Level 4.4 g/dl (3.5-5.0); Albumin/Globulin Ratio 1.8 (1.1-1.8); Alkaline Phosphatase 73 U/L (38-126); Anion Gap 11.1 mEq/L (5-15); Aspartate Amino Transferase 30 U/L (17-59); Bilirubin,Total 0.5 mg/dl (0.2-1.3); Blood Urea Nitrogen 14 mg/dl (9-20); Calcium 9.1 mg/dl (8.4-10.2); Carbon Dioxide 29 mmol/L (22.0-30.0); Chloride 106 mmol/L (98-107); Chol/HDL Ratio 2.2 (1-3.5); Cholesterol 234 mg/dl (140-200); Estimated Glomerular Filt Rate 112 ml/min (>60); GFR (African American) 136 ML/MIN (>60); Globulin 2.5 g/dL (1.3-3.2); Glucose 92 mg/dl (74-100); HDL Cholesterol 107 mg/dl (40-60); Potassium 4.1 mmoL/L (3.5-5.1); Sodium 142 mmol/L (136-145); Total Protein,Serum 6.9 g/dl (6.3-8.2); Triglycerides 72 mg/dl (30-150); VLDL Cholesterol 14 mg/dL (0-40)
[2022-09-25 19:13] LABS: Hemoglobin A1C 5.4 % (4.0-6.0)
[2022-09-25 19:25] LABS: Direct LDL Cholesterol 97.87 mg/dL (100-129)
[2022-09-25 19:34] LABS: Erythrocyte Sedimentation Rate 2 mm/hr (0-20)
[2022-09-25 20:05] LABS: Vitamin B12 856 pg/mL (239-931)
[2022-09-25 20:54] LABS: C-Reactive Protein 0.3 mg/L (0-4)
[2022-10-01 04:24] LABS: Testosterone, Total, LC/MS 479 ng/dL (.)
== END ==
PROVIDERS: PCP Family Medicine; Visit Provider Family Medicine
DX: Z00.00 Encounter for general adult medical examination without abnormal findings (principal); E11.9 Type 2 diabetes mellitus without complications; H53.8 Other visual disturbances; G45.8 Other transient cerebral ischemic attacks and related syndromes
CPT/HCPCS: 80053; 80061; 82607; 83036; 84403; 85025; 85651; 86140

== ENCOUNTER 2023-09-24 19:18 | Outpatient (CLI) | payer MEDICARE, OTHER, SELFPAY ==
[2023-09-24 20:05] LABS: Basophils % 0.2 % (0.1-2.0); Eosinophils # 0.1 K/mm3 (0.0-0.4); Eosinophils % 0.6 % (0.1-12.0); Hematocrit 43.9 % (42.0-52.0); Hemoglobin 14.9 g/dL (14.1-18.0); Lymphocytes # 2.5 K/mm3 (0.7-4.5); Lymphocytes % 30.7 % (10-50); Mean Corpuscular HGB Conc 33.9 g/dL (31.8-35.4); Mean Corpuscular Hemoglobin 33.5 pg (27.0-31.2); Mean Platelet Volume 9.4 fl (7.4-10.4); Monocytes # 0.5 K/mm3 (0.1-1.0); Monocytes % 5.7 % (1.7-9.3); Neutrophils # 5.1 K/mm3 (1.8-7.8); Neutrophils % 62.9 % (37.0-80.0); Platelet Count 251 K/mm3 (142-424); Red Blood Count 4.44 M/mm3 (4.60-6.20); Red Cell Distribution Width 13.2 % (11.5-17.5); White Blood Count 8.1 K/mm3 (4.8-10.8)
[2023-09-24 20:25] LABS: Alanine Aminotransferase 22 U/L (12-78); Albumin Level 3.9 g/dl (3.5-5.0); Albumin/Globulin Ratio 1.4 (1.1-1.8); Alkaline Phosphatase 61 U/L (38-126); Anion Gap 9.1 mEq/L (5-15); Aspartate Amino Transferase 31 U/L (17-59); Bilirubin,Total 0.5 mg/dl (0.2-1.3); Blood Urea Nitrogen 15 mg/dl (9-20); Calcium 9.2 mg/dl (8.4-10.2); Carbon Dioxide 28 mmol/L (22.0-30.0); Chloride 107 mmol/L (98-107); Chol/HDL Ratio 2.5 (1-3.5); Cholesterol 220 mg/dl (140-200); Estimated Glomerular Filt Rate 74 ml/min (>60); GFR (African American) 90 ML/MIN (>60); Globulin 2.7 g/dL (1.3-3.2); Glucose 96 mg/dl (74-100); HDL Cholesterol 88 mg/dl (40-60); Potassium 4.1 mmoL/L (3.5-5.1); Sodium 140 mmol/L (136-145); Total Protein,Serum 6.6 g/dl (6.3-8.2); Triglycerides 97 mg/dl (30-150); VLDL Cholesterol 19 mg/dL (0-40)
[2023-09-24 20:36] LABS: Direct LDL Cholesterol 92.38 mg/dL (100-129)
[2023-09-24 20:55] LABS: Prostate Specific Ag Screen 1.5 ng/ml (0.0-4.0)
[2023-09-26 08:48] LABS: Testosterone,Total 395 ng/dL (264-916)
== END 2023-09-24 23:59 | disposition home or self-care (01) ==
PROVIDERS: PCP Family Medicine; Visit Provider Family Medicine
DX: H53.8 Other visual disturbances (principal); I10 Essential (primary) hypertension; G45.9 Transient cerebral ischemic attack, unspecified; Z87.891 Personal history of nicotine dependence; E78.5 Hyperlipidemia, unspecified; Z12.5 Encounter for screening for malignant neoplasm of prostate
CPT/HCPCS: 80053; 80061; 84403; 85025; G0103

== ENCOUNTER 2024-02-07 19:20 | Outpatient (CLI) | payer MEDICARE, OTHER, SELFPAY ==
[2024-02-07 20:03] LABS: Basophils % 0.3 % (0.1-2.0); Eosinophils % 0.5 % (0.1-12.0); Hematocrit 42.9 % (42.0-52.0); Hemoglobin 14.7 g/dL (14.1-18.0); Lymphocytes # 2.1 K/mm3 (0.7-4.5); Lymphocytes % 30.2 % (10-50); Mean Corpuscular HGB Conc 34.3 g/dL (31.8-35.4); Mean Corpuscular Hemoglobin 33.4 pg (27.0-31.2); Mean Corpuscular Volume 97.2 fl (80-94); Mean Platelet Volume 9.4 fl (7.4-10.4); Monocytes # 0.5 K/mm3 (0.1-1.0); Monocytes % 6.5 % (1.7-9.3); Neutrophils # 4.3 K/mm3 (1.8-7.8); Neutrophils % 62.4 % (37.0-80.0); Platelet Count 247 K/mm3 (142-424); Red Blood Count 4.41 M/mm3 (4.60-6.20); Red Cell Distribution Width 13.1 % (11.5-17.5); White Blood Count 6.8 K/mm3 (4.8-10.8)
[2024-02-09 08:13] LABS: Testosterone,Total 446 ng/dL (264-916)
== END 2024-02-07 23:59 | disposition home or self-care (01) ==
LOC: LAB.DROPOF 19:21
PROVIDERS: PCP Family Medicine; Visit Provider Family Medicine
DX: I10 Essential (primary) hypertension (principal)
CPT/HCPCS: 84403; 85025

== ENCOUNTER 2024-08-28 10:01 | Outpatient (CLI) | payer MEDICARE, OTHER, SELFPAY ==
[2024-08-28 19:10] LABS: Hematocrit 42.5 % (42.0-52.0); Hemoglobin 14.3 g/dL (14.1-18.0); Immature Granulocytes % 0.5 %; Mean Corpuscular HGB Conc 33.6 g/dL (31.8-35.4); Mean Corpuscular Hemoglobin 32.4 pg (27.0-31.2); Mean Corpuscular Volume 96.4 fl (80-94); Nucleated Red Blood Cells % 0 %; Platelet Count 157 K/mm3 (142-424); Red Blood Count 4.41 M/mm3 (4.60-6.20); Red Cell Distribution Width-SD 46.5 fL; White Blood Count 6.5 K/mm3 (4.8-10.8)
[2024-08-28 19:43] LABS: Alanine Aminotransferase 19 U/L (12-78); Albumin Level 4.5 g/dl (3.5-5.0); Albumin/Globulin Ratio 1.8 (1.1-1.8); Alkaline Phosphatase 67 U/L (38-126); Anion Gap 10.2 mEq/L (5-15); Aspartate Amino Transferase 31 U/L (17-59); Bilirubin,Total 0.7 mg/dl (0.2-1.3); Blood Urea Nitrogen 17 mg/dl (9-20); Calcium 9.2 mg/dl (8.4-10.2); Carbon Dioxide 29 mmol/L (22.0-30.0); Chloride 101 mmol/L (98-107); Cholesterol 233 mg/dl (140-200); Creatinine,Serum 0.80 mg/dl (0.66-1.25); Estimated Glomerular Filt Rate 96 ml/min (>60); GFR (African American) 116 ML/MIN (>60); Globulin 2.5 g/dL (1.3-3.2); Glucose 103 mg/dl (74-100); HDL Cholesterol 91 mg/dl (40-60); Potassium 4.2 mmoL/L (3.5-5.1); Sodium 136 mmol/L (136-145); Total Protein,Serum 7.0 g/dl (6.3-8.2); Triglycerides 44 mg/dl (30-150)
[2024-08-28 20:24] LABS: Hepatitis C Ab Qual. W/ RFX NEGATIVE (Negative)
--- OUTSIDE RECORDS SUMMARY | 2024-09-01 10:09 | XMS_ITS | Data Portability ---
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 Plan of Treatment Reminders Order Date Submit Date Provider Last Modified By Organization Details Last Modified Time Details Appointments None recorded. Lab ESR (erythrocyt e sedimentati on rate), blood 2022 023 [facility], [address] [place] [address], [phone], 3 14:41:48 ESR (erythrocyt e sedimentati on rate), blood 2022 023 [email or web address] [facility], [address] [place] [address], [phone], 3 08:46:31 ESR (erythrocyt e sedimentati on rate), blood 2021 022 [facility], [address] [place] [address], [id number], 2 17:05:25 ESR (erythrocyt e sedimentati on rate), blood 2021 022 [facility], [address] [place] [address], [phone], 2 18:10:19 Referral None recorded. Procedures None recorded. Surgeries None recorded. Imaging None recorded. Medication Orders prednisone 2.5 mg tablet 2023 024 DANIEL [facility], [address] [place] [address] [place], [place], [phone], 4 11:05:50 prednisone 2.5 mg tablet 2022 023 DANIEL Not available 4 10:12:31 prednisone 2.5 mg tablet 2022 023 [email or web address] Not available 3 10:10:09 prednisone 2.5 mg tablet 2021 022 [email or web address] Not available 2 16:16:07 prednisone 2.5 mg tablet 2021 022 [email or web address] Not available 2 15:49:46 Patient TargetsNo targets recorded. Patient InstructionsNo instructions recorded. Reason for Referral None Reported. Results Created Date Observation Date Name Description Value Unit Range Abnormal Flag Note LastModifiedBy Organization Detail LastModifiedTime 03/08/19 22 03/08/2021 ESR, AUTOM ATED ESR, automated 2 mm 0-19 normal Not Available [facility] [address] [place] [address], [phone], 03/08/2021 18:10:19 09/06/19 22 09/05/2021 ESR, AUTOM ATED ESR, automated 2 mm 0-19 normal Not Available [facility] [address] [place], [address], 09/05/2021 17:05:25 10/06/19 23 10/05/2022 ESR, AUTOM ATED ESR, automated 2 mm 0-19 normal Not Available [facility] [place], [address], 10/05/2022 14:41:48 Result Notes None recorded. Procedures Surgical History Date Name Laterality Status Provider Name and Address Organization Details Recorded Time procedure on knee completed [facility] 10/05/2022 13:16:37 procedure on knee completed [facility] 10/05/2022 13:16:43 cholecystectomy completed [facility] 10/05/2022 13:16:55 procedure on shoulder completed [facility] 10/05/2022 13:17:03 Imaging Results None recorded. Procedure Notes None recorded. Medical Equipment None Reported. Allergies No known drug allergies Medications Name Sig Start Date Stop Date Status Note LastModified by Organization Details LastModified Time celecoxib 200 mg capsule 11/17 completed Not Available Not Available Not Available prednisone 10 mg tablet 10 mg a day as directed. 09/05 completed Not Available Not Available Not Available azithromyci n 250 mg tablet active Not Available Not Available Not Available lisinopril 20 mg tablet TAKE ONE TABLET BY MOUTH EVERY DAY FOR blood pressure active Not Available Not Available No t Available prednisone 20 mg tablet Take 3 tablets every day by oral route. active Not Available Not Available No t Available fluorouraci l 5 % topical cream active Not Available Not Available Not Available prednisone 5 mg tablet TAKE 1 TABLET BY MOUTH ONCE A DAY ALONG WITH THE 1 MG EACH MONTH 03/02 completed Not Available Not Available Not Available clopidogrel 75 mg tablet 09/15 completed Not Available Not Available Not Available sulfamethox azole 800 mg-trimetho prim 160 mg tablet active Not Available Not Available Not Available famotidine 20 mg tablet 09/15 completed Not Available Not Available Not Available prednisone 1 mg tablet TAKE ALONG WITH 5MG DIRECTED 9 MG A DAY FOR MARCH, 8 MG A DAY FOR APRIL, THEN CONTINUE TO DROP BY 1 MG EACH MONTH active Not Available Not Available No t Available hydrocodone 7.5 mg-acetamin ophen 325 mg tablet 09/15 completed Not Available Not Available Not Available prednisone 2.5 mg tablet Take 1 tablet every day by oral route for 90 days. 2023 active Not Available Not Available Not Avai lable pantoprazol e 40 mg tablet,issa yed release TAKE ONE TABLET BY MOUTH EVERY DAY active Not Available Not Available No t Available esomeprazol e magnesium 40 mg capsule,del ayed release 09/15 completed Not Available Not Available Not Available Heaven-D 12 Hour 60 mg-120 mg tablet,exte nded release active Not Available Not Available Not Available mupirocin 2 % topical ointment active Not Available Not Available Not Available methylpredn isolone 4 mg tablets in a dose pack active Not Available Not Available Not Available fluticasone propionate 50 mcg/actuati on nasal spray,suspe nsion active Not Available Not Available Not Available amoxicillin 500 mg-potassiu m clavulanate 125 mg tablet 08/17 completed Not Available Not Available Not Available oxycodone 5 mg tablet 08/17 completed Not Available Not Available Not Available testosteron e 20.25 mg/1.25 gram per pump act.(1.62 %) transdermal gel Apply 2 pumps topically DAILY (Apply 1 pump amount over max area of each upper arm and shoulder) active Not Available Not Available No t Available Paroex Oral Rinse 0.12 % mouthwash 09/15 completed Not Available Not Available Not Available Shingrix (PF) 50 mcg/0.5 mL intramuscul ar suspension, kit 03/08 completed Not Available Not Available Not Available Vitals Date Recorded Body height Body mass index (BMI) Body weight Respiratory rate Heart rate Oxygen saturation Oxygen saturation in Arterial blood by Pulse oximetry Systolic And Diastolic Provider Name and Address Organization Details Last Updated DateTime 3 177.8 cm 26.3 kg/m2 03085.4 g 18 /min 75 /min 95 % 95 % 136/74 mm[Hg] Elsa Akers [facility] 3 13:15:25 Date Recorded Body height Body mass index (BMI) Body weight Heart rate Systolic And Diastolic Provider Name and Address Organization Details Last Updated DateTime 03/08/2021 177.8 cm 26.1 kg/m2 32413.81 g 70 /min 130/68 mm[Hg] Enma Mandujano [facility] 03/08/2021 14:39:25 Date Recorded Body height Body mass index (BMI) Body weight Heart rate Oxygen saturation Oxygen saturation in Arterial blood by Pulse oximetry Systolic And Diastolic Provider Name and Address Organization Details Last Updated DateTime 2 177.8 cm 26.3 kg/m2 34508.4 g 64 /min 99 % 99 % 126/72 mm[Hg] Neelam Gauthier [facility] 2 14:27:17 Date Recorded Body height Body mass index (BMI) Body weight Respiratory rate Heart rate Oxygen saturation Oxygen saturation in Arterial blood by Pulse oximetry Systolic And Diastolic Provider Name and Address Organization Details Last Updated DateTime 3 177.8 cm 25.6 kg/m2 91180.8 4 g 16 /min 70 /min 97 % 97 % 130/70 mm[Hg] Elsa [facility] 3 13:18:02 Date Recorded Body weight Body mass index (BMI) Body height Respiratory rate Heart rate Oxygen saturation Oxygen saturation in Arterial blood by Pulse oximetry Systolic And Diastolic Provider Name and Address Organization Details Last Updated DateTime 4 99023.5 4 g 25.6 kg/m2 177.8 cm 16 /min 59 /min 96 % 96 % 112/72 mm[Hg] Elsa [facility] 4 10:14:58 Social History Question Answer Notes LastModified by [email or web address] Details LastModified Time Tobacco Smoking Status Never [facility]oker [facility] 14:10:50 How Much Tobacco Do You Chew? None Information not available 09/16/2019 What Was The Date Of Your Most Recent Tobacco Screening? 10/08/2023 [email or web address] Information not available 10/08/2023 How Much Tobacco Do You Smoke? No Information not available 09/16/2019 How Many Years Have You Smoked Tobacco? 0 Information not available 09/16/2019 Have You Recently Traveled Abroad? No [email or web address] Information not available 03/02/2022 Sex: Male Functional Status Question Answer Note LastModified by [email or web address] Details LastModified Time What is your level of alcohol consumption? Occasional [email or web address] Information not available 03/02/2022 Do you or have you ever used smokeless tobacco? Never used smokeless tobacco Information not available 09/16/2019 Do you or have you ever used e-cigarettes or vape? 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 Family History Nothing Reported. Medical History Condition Response Diabetes N Arthritis Y Emphysema N Acid Reflux (GERD) Y Heart Disease N Rheumatoid Arthritis N Hypertension Y COPD N Asthma N Past Encounters Encounter ID Performer Location Encounter Start Date Encounter Closed Date Diagnosis/Indication Diagnosis SNOMED-CT Code Diagnosis ICD10 Code Diagnosis Note [id number] DANNY CARDONA MD [facility] [address] [place] [address] 09/16/2019 13:48:05 09/16/2019 14:51:48 Giant cell arteritis with polymyalgia rheumatica 561138008 M31.5 64-year-ol d gentleman seen today for evaluation and management of Giant cell arteritis ( GCA). History is obtained from the patient and also Through the review of medical records. In brief, his symptoms started in January 2019 with typical proximal hip girdle and shoulder pains along with stiffness and fatigue. Later around April, he had an episode of transient vision loss involving the right eye which have been at least 3 or 4 occasions along with temporal and occipital headaches along with jaw pain. Evaluation s and workup by his PCP was significan t for elevated C-reactive protein an elevated ESR. He was initiated on steroids in June 2019 on 60 mg a day with a right temporal artery biopsy on July 24, 2019. The biopsy was negative for any features of giant cell arteritis. However his symptoms, resolved with the addition of steroids. Overall based on his clinical presentati ons, I would concur with the clinical diagnosis of biopsy negative giant cell arteritis. The giant cell arteritis is a large vessel vasculitis with skip lesions which can make biopsy negative depending upon the sample collection . I do not see any indication s or reasons for left temporal artery biopsy. I suggested him to maintain the prednisone at 40 mg a day for the month of August followed by 30 mg a day for the month of September and then maintain at 20 mg a day in the month of October. Maintain aspirin 325 mg once a day and maintain strict control on his lipid profile as well as blood pressure. further reduction in the dose of prednisone will depend upon his clinical symptoms, lab studies. Usually, we dropped steroids by 2.5 mg monthly for the next 4 months followed by a drop of 1 mg every month. in case of recurrence of headaches or any future vision problems such as amaurosis fugax, unexplaine d fevers along with elevated ESR or C-reactive protein on tapering doses of steroids, I would consider addition of IL6 antagonist Actemra at 162 mg every weekly as a steroid sparing drug. He will need to obtain ESR and C-reactive protein and a monthly basis. Is also suggested to maintain adequate intake of calcium and vitamin D. He was comfortabl e with the discussion . [id number] DANNY CARDONA MD [facility] [address] [place] [address] 11/18/2019 13:55:58 11/18/2019 14:46:54 Giant cell arteritis with polymyalgia rheumatica [id number] M31.5 64-year-ol d gentleman seen today for evaluation and management of Giant cell arteritis ( GCA). he is doing much better. Prednisone is now at 20 mg once a day. Denies any headaches or jaw pain. Denies any vision changes. Physical functions are at his baseline without any physical limitation . ESR and C-reactive protein September 2019 within normal limits. Suggested to continue prednisone at 20 mg a day for the month of October followed by a drop of 2.5 mg every 1 month still is on 10 mg once a day. continue aspirin 325 mg once a day with meals. In case of recurrence of headaches or any future vision problems such as amaurosis fugax, unexplaine d fevers along with elevated ESR or C-reactive protein on tapering doses of steroids, I would consider addition of IL6 antagonist Actemra at 162 mg every weekly as a steroid sparing drug. Follow with me in February. He was comfortabl e with the discussion . [id number] DANNY CARDONA MD [facility] [address] [place] [address] 03/16/2020 13:33:55 03/16/2020 13:58:44 Giant cell arteritis with polymyalgia rheumatica [id number] M31.5 64-year-ol d gentleman seen today as follow-up on Giant cell arteritis ( GCA). chronic disease. Clinically stable. Prednisone is now at 10 mg once a day. Interval injury and fracture left humeral head, doing much better with conservati ve treatment by his local orthopedic surgeon. Decided to hold off on any surgery. No headaches reported. Stable musculoske letal exam. Stable systemic exam. maintain prednisone at 10 mg once a day for the month of February 2020, then drop by 1 mg every 1 month till he is on 5 mg once a day continue aspirin 325 mg once a day with meals. In case of recurrence of headaches or any future vision problems such as amaurosis fugax, unexplaine d fevers along with elevated ESR or C-reactive protein on tapering doses of steroids, I would consider addition of IL6 antagonist Actemra at 162 mg every weekly as a steroid sparing drug. Follow with me in 3-4 months. labs repeated He was comfortabl e with the discussion . Long-term current use of systemic steroid [id number] 91176 Z79.52 long-term use of systemic steroids, prednisone . Side effects discussed. Maintain calcium and vitamin D. Consider bone density in the summer of 2020. [id number] DANNY CARDONA MD [facility] [address] [address] 08/17/2020 14:19:02 08/17/2020 14:51:34 Giant cell arteritis with polymyalgia rheumatica [id number] M31.5 65-year-ol d gentleman seen today as follow-up on Giant cell arteritis ( GCA). chronic disease. Clinically stable. Prednisone is now at 5 mg once a day. No headaches reported. Stable musculoske letal exam. Stable systemic exam. maintain prednisone at 5 mg once a day for now and repeat the blood test today. continue aspirin 325 mg once a day with meals. In case of recurrence of headaches or any future vision problems such as amaurosis fugax, unexplaine d fevers along with elevated ESR or C-reactive protein on tapering doses of steroids, I would consider addition of IL6 antagonist Actemra at 162 mg every weekly as a steroid sparing drug. Follow with me in 6 months. Long-term current use of systemic steroid [id number] 64449 Z79.52 long-term use of systemic steroids, prednisone . Side effects discussed. Maintain calcium and vitamin D. Consider bone density in the summer. [id number] DANNY CARDONA MD [facility] [address] [address] 03/08/2021 13:42:23 03/08/2021 16:53:55 Giant cell arteritis with polymyalgia rheumatica [id number] M31.5 65-year-ol d gentleman seen today as follow-up on Giant cell arteritis ( GCA). chronic disease. Clinically stable. Prednisone is now at 2.5 mg once a day. No headaches reported. Stable musculoske letal exam. Stable systemic exam. Continue current dose of prednisone at 2.5 mg once a day. Maintain aspirin 325 mg once a day with food. Avoid oral NSAIDs.In case of recurrence of headaches or any future vision problems such as amaurosis fugax, unexplaine d fevers along with elevated ESR or C-reactive protein on tapering doses of steroids, I would consider addition of IL6 antagonist Actemra at 162 mg every weekly as a steroid sparing drug.Gonsalo more ESR.Follow with me in 6 months. Long-term current use of systemic steroid [id number] 29807 Z79.52 long-term use of systemic steroids, prednisone . Side effects discussed. Maintain calcium and vitamin D. [id number] DANNY CARDONA MD [facility] [address] [place] [address] 09/05/2021 13:56:55 09/05/2021 16:28:27 Giant cell arteritis with polymyalgia rheumatica [id number] M31.5 66-year-ol d gentleman seen today as follow-up on Giant cell arteritis ( GCA). He has done very well. On a maintenanc e prednisone 2.5 mg once a day. Asymptomat ic.ESR on 03/08/2021, 2 mm/h. Continue with the current dose of prednisone . Maintain aspirin 81 mg once a day. Regular exercise reviewed. ESR repeated. Follow-up in 6 months. Long-term current use of systemic steroid [id number] 42576 Z79.52 long-term use of systemic steroids, prednisone . Side effects discussed. Maintain calcium and vitamin D. [id number] DANNY CARDONA MD [facility] [address] [place] [address] 03/02/2022 12:45:20 03/06/2022 12:56:56 Giant cell arteritis with polymyalgia rheumatica [id number] M31.5 66-year-ol d gentleman seen today as follow-up on Giant cell arteritis ( GCA). He has done very well. On a maintenanc e prednisone 2.5 mg once a day. Remains Asymptomat ic.ESR on 03/08/2021, 2 mm/h. Does not have any headaches or jaw pain. Strength is. Continue with the current dose of prednisone 2.5mg poqd, Maintain aspirin 81 mg once a day. Regular exercise reviewed. ESR repeated. Follow-up in 6 months. Long-term current use of systemic steroid [id number] 40386 Z79.52 long-term use of systemic steroids, prednisone . Side effects discussed. Maintain calcium and vitamin D. [id number] DANNY CARDONA MD [facility] [address] [place] [address] 10/05/2022 13:05:09 10/06/2022 04:43:21 Giant cell arteritis with polymyalgia rheumatica [id number] M31.5 67-year-ol d gentleman seen today as follow-up on Giant cell arteritis ( GCA). He has done very well. On a maintenanc e prednisone 2.5 mg once a day. Remains Asymptomat ic.ESR on 03/08/2021, 2 mm/h. Does not have any headaches or jaw pain. Strength is physiologi c. Pulses are palpable and nontender Continue with the current dose of prednisone 2.5mg po qd, Maintain aspirin 81 mg once a day. Regular exercise reviewed. His recent lipid profile shows elevated HDL at 123, low LDL at 89 normal triglyceri angela at 53 and total cholestero l 2 1 9 mg per DL followed by his PCP. ESR repeated. Follow-up in 12 months. Long-term current use of systemic steroid [id number] 16791 Z79.52 long-term use of systemic steroids, prednisone .Doing very well.We reviewed the side effect profile of long-term steroid. Maintain calcium and vitamin D. Continue with the weightbear ing exercises. [id number] DANNY CARDONA MD [facility] [address] [place] [address] 10/08/2023 09:51:09 10/10/2023 04:39:09 Giant cell arteritis with polymyalgia rheumatica [id number] M31.5 68-year-ol d gentleman seen today as follow-up on Giant cell arteritis (GCA). He has done very well. On a maintenanc e prednisone 2.5 mg once a day. Remains Asymptomat ic. ESR on 06/28/23, 3 mm/h. Does not have any headaches or jaw pain. Strength is physiologi c.Pulses are palpable and nontender Continue with the current dose of prednisone 2.5mg po qd, Maintain aspirin 81 mg.Suggest ed to reduce Asprin 81mg to 3 x a week. Regular exercise reviewed. His recent lipid profile shows elevated HDL at 123, low LDL at 89 normal triglyceri angela at 53 and total cholestero l 2 1 9 mg per DL followed by his PCP. ESR repeated. Follow-up in 12 months. Long-term current use of systemic steroid [id number] 22081 Z79.52 long-term use of systemic steroids, prednisone .Doing very well.We reviewed the side effect profile of long-term steroid. Maintain calcium and vitamin D. Continue with the weightbear ing exercises. Health Concerns Section Related Observation LastModified by Organization Detai ls LastModified Time None Recorded Concern Status LastModified by Organization Details LastModified Time None Recorded Advance Directives Directive None Recorded Payers Insurance Date Sequence Insurance Name Policy Number Policy Jewell Covered Member ID Jewell Member ID Guarantor Name 10/05/2022 2 [employer] (MEDICARE SUPPLEMENT) Chon Carrasquillo [id number] Chon Carrasquillo 11/17/2023 2 UNSPECIFIED REMIT PAYOR Chon Carrasquillo 10/05/2022 3 [place] [id number] Chon Carrasquillo [id number] Chon Carrasquillo 10/05/2022 1 [place] [id number] Chon Cararsquillo [id number] Chon Carrasquillo 10/05/2023 1 [place] Chon Carrasquillo [id number] Chon Carrasquillo 08/23/2020 3 [place] [id number] Charlene Carrasquillo [id number] Chon Carrasquillo Notes Date Note Type Note Provider Name and Address Organization Details Recorded Time 03/08/2021 text/html 65-year-old gentleman with giant cell arteritis and polymyalgia rheumatica. On maintenance prednisone, reduce to 2.5 mg once a day.No headaches. No fevers. No chills or shortness of breath. Ambulating at his baseline. DANNY CARDONA MD [address] [place] [address], [phone], [facility] 03/08/2021 15:51:53 09/05/2021 text/html Follow-up on felicia nt cell arteritis. On prednisone at 2.5 mg a day. Remains asymptomatic. No proximal or distal muscle pain. No headaches. No jaw pain. Ambulating at his baseline. DANNY CARDONA MD [address] [place] [address] [place], [phone] 09/05/2021 16:17:38 03/02/2022 text/html 66-year-old gentleman PMR on maintenance prednisone 2.5 mg daily. Further history of GCA. No recurrence of headaches. No jaw pain. No blurry vision. Participating in normal activities. Health maintenance is up-to-date. DANNY CARDONA MD [address] [place] [address], [phone] 03/05/2022 10:11:51 10/05/2022 text/html 66-year-old gentleman PMR on maintenance prednisone 2.5 mg daily. He is doing very well. No complaints. No recurrence of headaches. No jaw pain. No blurry vision. Participating in normal activities. Health maintenance is up-to-date. DANNY CARDONA MD [address] [place] [address] [place], [phone], [facility] 10/05/2022 13:43:51 10/08/2023 text/html 68-year-old gentleman PMR on maintenance prednisone 2.5 mg daily along with baby asprin. Has started strength training 3 months ago. Has cataracts. He is doing very well. No complaints. No recurrence of headaches. No jaw pain. No blurry vision. Participating in normal activities. Health maintenance is up-to-date. DANNY CARDONA MD [address] [place] [address] [place], [phone], [facility] 10/09/2023 09:07:58
--- OUTSIDE RECORDS SUMMARY | 2024-09-01 10:10 | XMS_ITS | Data Portability ---
Author Organization [facility] Address [address] [place] [address] Assessment Encounter Date Assessment Date Assessment LastModified by Organization Details LastModified Time 04/07/2024 04/07/2024 Call office with questions or concerns. RTO for new or worsening symptoms. [place] [id number] Not available 04/07/2024 13:37:21 04/10/2024 04/10/2024 Call office with questions or concerns. RTO for new or worsening symptoms. [email or web address] Not available 04/10/2024 13:01:40 Plan of Treatment Reminders Order Date Submit Date Provider Last Modified By Organization Details Last Modified Time Details Appointments None recorded. Lab rapid flu (A+B) [address], [address] [place], [address], 13:02:06 rapid flu (A+B) [address], [address] [place], [address], 5 13:39:49 rapid SARS CoV + SARS CoV 2 Ag, QL IA, respiratory specimen [address], [address] [place], [address], 5 13:39:49 surgical pathology study - skin from left mid back rule out superficial BCC 2023 024 [place] [facility], [address], Eric [address], [place], [address], 4 14:50:06 Referral None recorded. Procedures None recorded. Surgeries None recorded. Imaging XR, chest, 2 view 2024 [email or web address] [facility], [address] [place], [address], 5 16:50:14 Medication Orders dexamethaso ne sodium phosphate 4 mg/mL injection solution 2024 025 [email or web address] 2 [facility], [address] [place] [address] , [place], [place], [id number], 5 10:30:41 amoxicillin 875 mg-potassiu m clavulanate 125 mg tablet [address] [facility], [address], [place], [address], 5 13:34:42 ceftriaxone 1 gram solution for injection 2022 023 [email or web address] Not available 10:23:15 Depo-Medrol 80 mg/mL suspension for injection 2022 023 [email or web address] Not available 5 10:22:41 Zithromax Z-Yovany 250 mg tablet 2022 023 [email or web address] Not available 5 10:23:02 Patient TargetsNo targets recorded. Patient Instructions Encounter Date Encounter Id Patient Instructions Last Modified By Organization Details Last Modified Time 05/22/2022 [id number] upper respirator y infection (cold): care instructions Not available 05/22/2022 09:54:49 keep well hydrated, get 6 to 8 hours of sleep a night; eat healthy ; exercise, RTC prn Not available 05/22/2022 09:56:48 08/15/2023 [id number] future procedure : cryo on right tenriism shave on left mid lower back ( pink pearly eruption) Not available 08/15/2023 09:07:57 12/18/2023 [id number] follow up compa zelaya pathology Not available 12/18/2023 13:46:21 04/07/2024 [id number] body mass index: care instructions Not available 04/07/2024 13:38:22 learning about healthy weight Not available 04/07/2024 13:38:21 Reason for Referral None Reported. Results Created Date Observation Date Name Description Value Unit Range Abnormal Flag Note LastModifiedBy Organization Detail LastModifiedTime 12/18/1912/21/2023 PATHO LOGEros more Mater ial submi tted: . back - LEFT MID BACK. Modif iers: left, mid Not Available [facility] ([facility]) [address], [place], [address], 12/21/2023 14:15:02 12/18/1912/21/2023 PATHO LOGY EDNA more Diagn osis: LEFT MID BACK: - BASAL CELL CARCI NOMA, MIXED SUPER FICIA L AND SMALL NODUL AR TYPE. - INKED REYMUNDO N OF THE SPECI MEN IS NEGAT TONJA FOR CARCI NOMA, SEE COMME NT. COMME NT: THE SPECI MEN IS SERIA LLY SECTI ONED. THE REYMUNDO NS OF ALL FOUR SECTI ONS ARE NEGAT TONJA FOR CARCI NOMA. HOWEV ER, THE OPPOS ITE REYMUNDO NS CANNO T BE EVALU ATED. CLINI JONELLE CORRE LATIO N IS NEEDE D TO ASCER TAIN COMPL ETENE SS OF EXCIS ION. TMZ 12/20 1221 Local Not Available [facility] ([facility]) [address] [facility], [place], [address], 12/21/2023 14:15:02 12/18/1912/21/2023 PATHO LOGY REPOR T . Commen t Elect jeanine dunn d: . Sami Bee MD, Patho logis t Not Available [facility] ([facility]) [address] [facility], [place], [address], 12/21/2023 14:15:02 12/18/1912/21/2023 PATHO LOGY REPOR T . Commen t Gross descr iptio n: . RECEI BRITTNEE IN FORMA SUKUMAR LABEL ED WITH THE PATIE NTS NAME AND LEFT MID BACK IS A 1.0 X 0.9 X 0.2 CM PIECE OF SHAVE D BULLOCK BROWN SKIN. INKED IN BLACK AT THE RESEC TION REYMUNDO N, SECTI ONED INTO FOUR SECTI ONS AND SUBMI TTED ENTIR VANNESA IN ONE CASSE TTE. MZH/B XS 12/19 1122 Local Not Available [facility] ([facility]) [address], [place], [address], 12/21/2023 14:15:02 12/18/1912/21/2023 PATHO LOGY REPOR T . Commen t Micro scopi c: . MICRO SCOPI C EXAMI NATIO N IS PERFO RMED. Not Available [facility] ([facility]) [address] [facility] [facility], [place], [address], 12/21/2023 14:15:02 12/18/19 24 12/21/2023 PATHO LOGY REPOR T . Commen t Patho logis t provi ded ICD-1 0: C44.9 1 Not Available [facility] ([facility]) [address], [place], [address], 12/21/2023 14:15:02 12/18/19 24 12/21/2023 PATHO [place]GEros [place] CPT . 04629 1 Not Available [facility] ([facility]) [address] [facility], [place], [address], 12/21/2023 14:15:02 04/07/19 25 04/07/2024 rapid SARS CoV + SARS CoV 2 Ag, QL IA, respi rator y speci men SARS CoV antigen Negati ve Not Available [address] [place], [address], 04/07/2024 13:20:23 04/07/19 25 04/07/2024 rapid flu (A+B) Flu negati ve Not Available [address] [place], [address], 04/07/2024 13:20:10 04/07/19 25 04/07/2024 rapid flu (A+B) Type Both A & B Not Available [address] [place], [address], 04/07/2024 13:20:10 04/10/19 25 04/10/2024 rapid flu (A+B) Flu negati ve Not Available [address] [place], [address], 04/10/2024 13:01:57 04/10/19 25 04/10/2024 rapid flu (A+B) Type Both A & B Not Available [address] [place], [address], 04/10/2024 13:01:57 04/10/19 25 04/10/2024 XR, chest , 2 view No observ ation record ed. [email or web address] [facility] [address] [place], [address], 04/11/2024 17:22:23 04/10/19 25 04/10/2024 XR, chest , 2 view No observ ation record ed. [email or web address] [facility] [address] [place] [address] [place], [address], 04/11/2024 17:22:23 Result Notes None recorded. Problems Name Problem SNOMED Code Status Onset Date Resolution Date Notes Provider Name and Address Organization Details Recorded Time Screening procedure Active 2018 Saurabh Perez MD [address], [place], [address], [place] - [facility] 9 14:39:39 Gastro-esop hageal reflux disease with ulceration 575355611 Active 2018 Katja Zeng null, KAR[place] - [facility] 9 14:44:09 History of giant cell arteritis 3668515263990 09 Active 2020 Saurabh Perez MD [address], [place], [address], [place] - [facility] 1 11:08:32 Allergic disposition 273941987 Active 2015 Laura garcia [place] - [facility] 6 10:31:28 Headache 82157186 Active 2015 Laura garcia [place] - [facility] 6 10:31:47 Pain of joint 20685127 Active 2015 Laura garcia [place] - [facility] 6 10:32:00 Osteoarthri tis 711213756 Active 2015 Laura garcia [place] - [facility] 6 10:32:09 Acute sinusitis 67108133 Active 2024 Erin Lo APRN [address], [place], [address], [place] - [facility] 5 13:35:18 Overweight 559010691 Active 2024 Erin Lo, [employer] [address], [place], [address], [facility] - [facility] 5 13:38:19 Cough 63031044 Active 2024 Erin Lo, [employer] [address], [place], [address], [facility] - [facility] 5 10:29:59 Sinusitis 27639328 Active 2016 Sarahines Bass [place], [place] - [facility] 7 10:28:16 Problem Notes None recorded. Procedures Surgical History Date Name Laterality Status Provider Name and Address Organization Details Recorded Time 12/18/19 24 Shave Biopsy trunk, arms, or legs completed Sandra Mckeon, [employer] [address], [place], [address], [facility] - [facility] 12/18/2023 13:44:39 03/08/19 23 I&D completed Brii Wilkins [place] - [facility] 023 09:35:37 01/09/20 19 Systolic B/P less than 130 mm Hg completed Katjaalban Zeng [place] - [facility] 01/08/2019 17:48:38 01/09/20 19 Diastolic B/P 80-89 mm Hg completed Katja Zeng [place] - [facility] 01/08/2019 17:48:43 02/26/19 10 Cholecystectomy, laparoscopic completed Sarah Bass [place] - [facility] 07/11/2016 10:30:00 Arthroscopic Surgery completed Laura Acosta [place] - [facility] 02/22/2016 10:34:58 Imaging Results None recorded. Procedure Notes None recorded. Medical Equipment None Reported. Allergies Allergen ID Allergen Name Allergen Category Reaction Reaction Severity Criticality Documentation Date Start Date Code Code System Note Provider Name and Address Organization Details Recorded Time 00316 house dust allergeni c extract environme nt,medica tion Not available Not available Not available 12/03/20152007 71971 9 RxNorm Not Available [facility] 6 09:43:54 80431 Grass Pollen environme nt,medica tion Not available Not available Not available 12/03/20152007 28012 UNK Not Available [facility] 6 09:43:54 Medications Name Sig Start Date Stop Date Status Note LastModified by Organization Details LastModified Time Singulair 10 mg tablet take 1 tablet (10 mg) by oral route once daily for 30 days 05/27 completed Singulai r 10 mg oral tablet;R ecorded Status: Recorded on: 06/13/19 09 9:30AM;D iscontin ued Status: Disconti nued on: 05/28/19 11 10:05AM; User: neva;Es t. Completi on: 07/13/19 09 Not Available Not Available Not Available celecoxib 200 mg capsule 04/10 completed Not Available Not Available Not Available Miralax 17 gram/dose oral powder use as directed by oral route 2 times a day 05/27 completed Miralax 17 gram/dos e oral powder;R ecorded Status: Recorded on: 05/21/19 10 4:25PM;D iscontin ued Status: Disconti nued on: 05/28/19 11 10:05AM; User: meredith; Est. Completi on: 06/20/19 10 Not Available Not Available Not Available prednison e 10 mg tablet 09/15 completed Not Available Not Available Not Available Depo-Medr ol 40 mg/mL suspensio n for injection one time only 02/22 completed Not Available Not Available Not Available Relenza Diskhaler 5 mg/actuat ion powder for inhalatio n inhale 2 puffs (10 mg) by inhalati on route 2 times per day approxim ately 12 hours apart for 5 days 05/27 completed Relenza Diskhale r 5 mg/actua tion inhalati on blister with device;R ecorded Status: Recorded on: 09/17/19 09 1:28PM;D iscontin ued Status: Disconti nued on: 05/28/19 11 10:05AM; User: neuss;Es t. Completi on: 09/22/19 09;Indic ation: Influenz a - (08.4871 00) Not Available Not Available Not Available azithromy betito 250 mg tablet take 2 tablets (500 mg) by oral route once daily for 1 day then 1 tablet (250 mg) by oral route once daily for 4 days 04/10 completed Not Available Not Available Not Available Celestone Soluspan 6 mg/mL suspensio n for injection 6 mg x 1 now 07/31 completed Not Available Not Available Not Available meloxicam 15 mg tablet 02/15 completed Not Available Not Available Not Available lisinopri l 20 mg tablet TAKE ONE TABLET BY MOUTH EVERY DAY FOR blood pressure active Not Available Not Available No t Available prednison e 20 mg tablet 04/10 completed Not Available Not Available Not Available prednison e 5 mg tablet 09/15 completed Not Available Not Available Not Available Anucort-H C 25 mg supposito ry insert 1 supposit ory (25 mg) by rectal route 3 times per day for 30 days 05/27 completed Anucort- HC 25 mg rectal supposit ory;Aiden rded Status: Recorded on: 05/21/19 10 4:25PM;D iscontin ued Status: Disconti nued on: 05/28/19 11 10:05AM; User: gem English on: 06/20/19 10;Indic ation: Hemorrho ids - (07.4556 00) Not Available Not Available Not Available clopidogr el 75 mg tablet 04/10 completed Not Available Not Available Not Available sulfameth oxazole 800 mg-trimet hoprim 160 mg tablet Take 1 tablet every 12 hours by oral route for 10 days. 04/10 completed Not Available Not Available Not Available omeprazol e 40 mg capsule,d elayed release take 1 capsule by oral route daily 06/09 completed omeprazo le 40 mg oral capsule, delayed release( /EC);P rescribe Status: Prescrib ed on: 02/22/20 13 5:18PM;D iscontin ued Status: Disconti nued on: 06/10/19 15 9:41AM;U ser: neuss;Es t. Completi on: 03/23/19 14;Pharm acyVerif ied: 02/22/20 13 5:18PM Not Available Not Available Not Available Depo-Medr ol 80 mg/mL suspensio n for injection Take 1 mL by injectio n route. 04/10 completed Not Available Not Available Not Available ceftriaxo ne 1 gram solution for injection Take 1 g by injectio n route. 04/10 completed Not Available Not Available Not Available amoxicill in 875 mg tablet take 1 tablet (875 mg) by oral route every 12 hours for 10 days 06/14 completed amoxicil sukumar 875 mg oral tablet;R ecorded Status: Recorded on: 05/26/19 10 10:56AM; Disconti nued Status: Disconti nued on: 06/15/19 10 2:37PM;U ser: [email or web address]; Est. Completi on: 06/05/19 10;Print ed: 05/26/19 10 Not Available Not Available Not Available famotidin e 20 mg tablet 04/10 completed Not Available Not Available Not Available prednison e 1 mg tablet 09/15 completed Not Available Not Available Not Available hydrocodo ne 7.5 mg-acetam inophen 325 mg tablet 02/17 completed Not Available Not Available Not Available prednison e 2.5 mg tablet TAKE ONE TABLET BY MOUTH EVERY DAY active Not Available Not Available No t Available pantopraz ole 40 mg tablet,de layed release TAKE ONE TABLET BY MOUTH EVERY DAY active Not Available Not Available No t Available trazodone 150 mg tablet take 1 tablet (150 mg) by oral route once daily at bedtime 06/09 completed trazodon e 150 mg oral tablet;R ecorded Status: Recorded on: 01/02/20 12 6:40PM;D iscontin ued Status: Disconti nued on: 06/10/19 15 9:41AM;U ser: neuss;Es t. Completi on: 07/01/19 13;Indic ation: Insomnia - (16.7805 20) Not Available Not Available Not Available oseltamiv ir 75 mg capsule Take 1 capsule twice a day by oral route for 5 days. 08/22 completed Not Available Not Available Not Available esomepraz ole magnesium 40 mg capsule,d elayed release TAKE ONE CAPSULE BY MOUTH ONCE DAILY FOR 30 DAYS 04/10 completed Not Available Not Available Not Available Cipro 500 mg tablet take 1 tablet (500 mg) by oral route 2 times per day for 10 days 06/09 completed Cipro 500 mg oral tablet;R ecorded Status: Recorded on: 03/04/19 15 9:15AM;D iscontin ued Status: Disconti nued on: 06/10/19 15 9:41AM;U ser: gored;Es t. Completi on: 03/14/19 15 Not Available Not Available Not Available Proctofoa m HC 1 %-1 % insert 1 applicat orful by rectal route 2 times per day PRN 05/27 completed Proctofo am HC 1-1 % rectal foam;Rec orded Status: Recorded on: 11/18/19 09 1:12PM;D iscontin ued Status: Disconti nued on: 05/28/19 11 10:05AM; User: gem Est. Completi on: 05/17/19 10;Indic ation: Rectal Disorder s - (09.5694 00) Not Available Not Available Not Available Lincocin 300 mg/mL injection solution Take 1 mL by injectio n route. 09/04 completed Not Available Not Available Not Available Heaven-D 12 Hour 60 mg-120 mg tablet,ex tended release take 1 tablet by oral route 2 times per day 04/10 completed Not Available Not Available Not Available promethaz ine 25 mg tablet take 1 tablet (25 mg) by oral route every 6 hours as needed for 5 days 06/03 completed prometha zine 25 mg oral tablet;R ecorded Status: Recorded on: 04/30/19 13 11:39AM; Disconti nued Status: Disconti nued on: 06/04/19 14 2:50PM;U ser: gored;Es t. Completi on: 05/05/19 13;Print ed: 04/30/19 13 Not Available Not Available Not Available Claritin- D 12 Hour 5 mg-120 mg tablet,ex tended release Take 1 tablet every 12 hours by oral route for 30 days. 04/28 completed Not Available Not Available Not Available omeprazol e 20 mg capsule,d elayed release take 1 capsule by oral route 2 times a day for 30 days 02/22 completed omeprazo le 20 mg oral capsule, delayed release( /REBEL);R ecorded Status: Recorded on: 02/23/20 09 5:52PM;D iscontin ued Status: Disconti nued on: 02/23/20 09 5:53PM;U ser: bishopk; Est. Completi on: 08/22/19 10 Not Available Not Available Not Available mupirocin 2 % topical ointment APPLY A SMALL AMOUNT TO THE AFFECTED AREA BY TOPICAL ROUTE 3 TIMES PER DAY 04/10 completed Not Available Not Available Not Available Vistaril 25 mg capsule take 1 capsule by oral route 3 times a day as needed for 7 days 01/01 completed Vistaril 25 mg oral capsule; Recorded Status: Recorded on: 05/21/19 11 9:03AM;D iscontin ued Status: Disconti nued on: 01/02/20 12 6:40PM;U ser: bishopk; Est. Completi on: 05/28/19 11;Indic ation: Anxiety - (05.3000 00) Not Available Not Available Not Available dexametha sone sodium phosphate 4 mg/mL injection solution Inject 4 mg by intramus cular route. 2024 active Not Available Not Available Not Avai lable Nasonex 50 mcg/actua tion [place] spray 2 sprays in each nostril by intranas al route once daily for 14 days 07/29 completed Nasonex 50 mcg/actu ation nasal spray,no n-aeroso l;Record ed Status: Recorded on: 03/04/19 15 9:15AM;D iscontin ued Status: Disconti nued on: 07/30/19 15 9:52AM;U ser: gored;Es t. Completi on: 03/18/19 15 Not Available Not Available Not Available testoster one cypionate 200 mg/mL intramusc ular oil INJECT 200mg INTRAMUS CULARLY EVERY 2 WEEKS active Not Available Not Available No t Available methylpre dnisolone 4 mg tablets in a dose pack take as directed for 6 days 04/10 completed Not Available Not Available Not Available Lomotil 2.5 mg-0.025 mg tablet take 2 tablets (5 mg) by oral route once daily for 5 days 02/22 completed Lomotil 2.5-0.02 5 mg oral tablet;R ecorded Status: Recorded on: 09/10/19 09 10:38AM; Disconti nued Status: Disconti nued on: 02/23/20 09 5:52PM;U ser: calvom;E st. Completi on: 09/15/19 09;Indic ation: Diarrhea - (16.7879 10);Prin naun: 09/10/19 Not Available Not Available Not Available dexametha sone sodium phosphate 10 mg/mL injection solution Take 0.4 mL by injectio n route. 09/04 completed Not Available Not Available Not Available fluticaso ne propionat e 50 mcg/actua tion nasal spray,fabrice pension spray one spray in each nostril twice a day 09/15 completed Not Available Not Available Not Available Ambien 10 mg tablet take 1 tablet (10 mg) by oral route once daily at bedtime for 30 days 01/01 completed Ambien 10 mg oral tablet;R ecorded Status: Recorded on: 07/26/19 12 9:24AM;D iscontin ued Status: Disconti nued on: 01/02/20 12 6:40PM;U ser: neuss;Es t. Completi on: 11/23/19 12;Indic ation: Insomnia - (307.40) Not Available Not Available Not Available amoxicill in 875 mg-potass ium clavulana te 125 mg tablet TAKE ONE (1) TABLET EVERY 12 HOURS BY ORAL ROUTE FOR 7 DAYS. active Not Available Not Available No t Available amoxicill in 500 mg-potass ium clavulana te 125 mg tablet Take 1 tablet every 8 hours by oral route. 09/15 completed Not Available Not Available Not Available oxycodone 5 mg tablet 04/10 completed Not Available Not Available Not Available chlorhexi dine gluconate 0.12 % mouthwash 04/10 completed Not Available Not Available Not Available Prednison e (Yovany) as directed 03/15 completed predison e dospkg 5 mg.;Aiden rded Status: Recorded on: 07/30/19 15 1:58PM;D iscontin ued Status: Disconti nued on: 03/15/19 16 10:31AM; User: alex Est. Completi on: 08/05/19 15;Indic ation: allergy - (-5) Not Available Not Available Not Available Antivert one tid prn 03/15 completed antevert 12.5 mg.;Aiden rded Status: Recorded on: 07/30/19 15 1:58PM;D iscontin ued Status: Disconti nued on: 03/15/19 16 10:31AM; User: alex EstSb Completi on: 08/06/19 15;Indic ation: dizzy - (-5) Not Available Not Available Not Available Keflex 1 bid 05/20 completed keflex 500mg;Re corded Status: Recorded on: 02/22/20 10 2:48PM;D iscontin ued Status: Disconti nued on: 05/21/19 11 9:03AM;U ser: liz richEstSb Completi on: 03/03/19 11;Indic ation: - (-5);Mer nted: 02/22/20 10 Not Available Not Available Not Available Rynatan 1 bid 05/27 completed rynatan; Recorded Status: Recorded on: 02/22/20 10 2:48PM;D iscontin ued Status: Disconti nued on: 05/28/19 11 10:05AM; User: liz richEst. Completi on: 03/03/19 11;Indic ation: - (-5);Mer nted: 02/22/20 10 Not Available Not Available Not Available Zithromax Z-Yovany as directed 06/03 completed z-pkg 250 mg.;Aiden rded Status: Recorded on: 04/14/19 13 9:52AM;D iscontin ued Status: Disconti nued on: 06/04/19 14 2:50PM;U ser: jose elias; Est. Completi on: 04/20/19 13;Indic ation: sinus - (-5) Not Available Not Available Not Available levocetir izine 5 mg tablet Take 1 tablet every day by oral route. 04/28 completed Not Available Not Available Not Available diclofena c 1 % topical gel APPLY 2 grams TO affected AREA TWICE DAILY active Not Available Not Available No t Available Suprep Bowel Prep Kit 17.5 gram-3.13 gram-1.6 gram oral solution 04/28 completed Not Available Not Available Not Available testoster one 20.25 mg/1.25 gram per pump act.(1.62 %) transderm al gel apply 1 pump amount over max area of EACH upper arm and apply 1 pump to each shoulder active Not Available Not Available No t Available Heaven-D one bid 03/15 completed heaven d 12 hr;Recor ded Status: Recorded on: 07/30/19 15 1:58PM;D iscontin ued Status: Disconti nued on: 03/15/19 16 10:31AM; User: alex Est. Completi on: 08/06/19 15;Indic ation: sinus - (-5) Not Available Not Available Not Available Shingrix (PF) 50 mcg/0.5 mL intramusc ular suspensio n, kit 09/15 completed Not Available Not Available Not Available Vitals Date Recorded Body height Body mass index (BMI) Body weight Body temperature Heart rate Oxygen saturation Oxygen saturation in Arterial blood by Pulse oximetry Respiratory rate Systolic And Diastolic Provider Name and Address Organization Details Last Updated DateTime 5 177.8 cm 26 kg/m2 54461.3 2 g 98.7 [degF] 95 /min 98 % 98 % 18 /min 122/80 mm[Hg] Jacinta Lane [place] - [facility] 5 13:13:19 Date Recorded Body height Body mass index (BMI) Body weight Body temperature Heart rate Oxygen saturation Oxygen saturation in Arterial blood by Pulse oximetry Respiratory rate Systolic And Diastolic Provider Name and Address Organization Details Last Updated DateTime 5 177.8 cm 25.8 kg/m2 34679.8 3 g 99.8 [degF] 88 /min 98 % 98 % 18 /min 126/80 mm[Hg] Dulce Collazo [place] - [facility] 5 09:55:03 Date Recorded Body height Body mass index (BMI) Body weight Heart rate Oxygen saturation Oxygen saturation in Arterial blood by Pulse oximetry Respiratory rate Systolic And Diastolic Provider Name and Address Organization Details Last Updated DateTime 3 177.8 cm 25.3 kg/m2 59308.2 6 g 73 /min 96 % 96 % 18 /min 128/80 mm[Hg] Michaela Edmond [place] - [facility] 3 09:40:48 Date Recorded Body height Body mass index (BMI) Body weight Heart rate Oxygen saturation Oxygen saturation in Arterial blood by Pulse oximetry Respiratory rate Systolic And Diastolic Provider Name and Address Organization Details Last Updated DateTime 4 177.8 cm 25.7 kg/m2 14887.0 3 g 59 /min 98 % 98 % 16 /min 122/80 mm[Hg] Ngoc Asif [place] - [facility] 4 08:47:36 Date Recorded Body height Body mass index (BMI) Body weight Heart rate Oxygen saturation Oxygen saturation in Arterial blood by Pulse oximetry Respiratory rate Systolic And Diastolic Provider Name and Address Organization Details Last Updated DateTime 4 177.8 cm 25.7 kg/m2 14802.0 3 g 72 /min 98 % 98 % 16 /min 118/72 mm[Hg] Ngoc Asif [place] - [facility] 4 13:33:07 Social History Question Answer Notes LastModified by Organizat ion Details LastModified Time Tobacco Smoking Status Never Smoker Laura garcia [place] - [facility] 02/22/2016 10:30:19 Do You Have An Advance Directive? No [email or web address] Information not available 07/11/2016 Are You Blind Or Do You Have Difficulty Seeing? No [email or web address] Information not available 02/22/2016 What Is Your Level Of Caffeine Consumption? Occasional [email or web address] Information not available 07/11/2016 Are You Deaf Or Do You Have Serious Difficulty Hearing? No [email or web address] Information not available 02/22/2016 What Type Of Diet Are You Following? REGULAR [email or web address] Information not available 07/11/2016 Which Illicit Or Recreational Drugs Have You Used? None [email or web address] Information not available 07/11/2016 Hard Of Hearing Or Deaf In One Or Both Ears? No [email or web address] Information not available 07/11/2016 Legally Blind In One Or Both Eyes? No [email or web address] Information no t available 07/11/2016 Live Alone Or With Others? With Others [email or web address] Information not available 07/11/2016 What Was The Date Of Your Most Recent Tobacco Screening? 03/08/2022 [email or web address] Information not available 03/08/2022 How Many Children Do You Have? 1 [email or web address] Information not available 07/11/2016 What Is Your Relationship Status? [email or web address] Information not available 07/11/2016 Seat Belts Used Routinely Yes [email or web address] Information not available 07/11/2016 Smoke Alarm In Home Yes [email or web address] Information not available 07/11/2016 How Much Tobacco Do You Smoke? No Information not available 07/22/2020 Do You Use Sunscreen Routinely? Yes [email or web address] Information not available 07/11/2016 Has Tobacco Cessation Counseling Been Provided? No [email or web address] Information not available 03/08/2022 Do You Have Difficulty Walking Or Climbing Stairs? No [email or web address] Information not available 02/22/2016 Sex: Male Functional Status Question Answer Note LastModified by Organizat ion Details LastModified Time Do you or have you ever used any other forms of tobacco or nicotine? No [email or web address] Information not available 03/08/2022 What is your level of alcohol consumption? Occasional [email or web address] Information not available 07/11/2016 Do you or have you ever used smokeless tobacco? Never used smokeless tobacco [email or web address] Information not available 07/22/2020 Are you currently employed? Yes [email or web address] Information not available 07/11/2016 Are you able to walk? YESWOREST [email or web address] Information not available 07/11/2016 Do you have difficulty doing errands alone? No [email or web address] Information not available 02/22/2016 Are you able to care for yourself? 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 No [email or web address] Information not available 02/22/2016 Do you or have you ever used e-cigarettes or vape? Never used electronic cigarettes Information not available 07/22/2020 What is your exercise level? Moderate [email or web address] Information not available 07/11/2016 Mental Status Question Answer Note LastModified by Organization D etails LastModified Time Do you have difficulty concentrating, remembering or making decisions? No [email or web address] Information no t available 02/22/2016 Family History Relationship Description Onset Age of this Age Resolved Age Notes LastModified by Organization Details LastModified Time Paternal Grandfather Coronary arterioscler osis [email or web address] Not available 2015 10:33:17 Paternal Grandfather Myocardial infarction [email or web address] Not available 02/21 10:34:16 Maternal Grandmother Diabetes mellitus [email or web address] Not available 2015 10:33:30 Maternal Grandfather Neoplasm of lung [email or web address] Not available 2015 10:34:03 Daughter Suicide [email or web address] Not availabl e 02/22/2016 10:34:28 Daughter Depressive disorder [email or web address] Not available 2015 10:34:37 Medical History Condition Response Hospitalizations Y Immunizations Vaccine Type Date Status Note Provider Nam e and Address Organization Details Recorded Time Influenza, high-dose, quadrivalent, PF [address] null, [place] - [facility] 04/07/2024 13:14:44 COVID-19 vaccine, vector-nr, rS-Ad26, PF, 0.5 mL 1 completed Jacinta Zornes [place], [place] - [facility] 04/07/2024 13:14:44 COVID-19 vaccine, vector-nr, rS-Ad26, PF, 0.5 mL 1 completed Jacinta Pearsonrarin null, [place] - [facility] 04/07/2024 13:14:44 Tdap 7 completed Jacinta Zornes [place], [place] - [facility] 04/07/2024 13:14:44 zoster live 7 completed Jacinta Zorarin [place], [place] - [facility] 04/07/2024 13:14:44 zoster recombinant 0 completed Reji Barron null, [place] - [facility] 07/08/2019 09:40:49 pneumococcal polysaccharide PPV23 1 completed Reji Barron null, [place] - [facility] 03/09/2020 13:48:59 influenza, unspecified formulation 8 completed Tiffanie Leon [place], [place] - [facility] 02/15/2018 13:59:51 Influenza, split virus, quadrivalent, preservative 9 completed Katja Zeng [place] - [facility] 01/08/2019 17:54:23 Pneumococcal conjugate PCV 13 9 completed Not Available [facility] 03/15/2019 03:56:17 zoster live 9 completed Not Available [facility] 03/15/2019 03:56:02 Past Encounters Encounter ID Performer Location Encounter Start Date Encounter Closed Date Diagnosis/Indication Diagnosis SNOMED-CT Code Diagnosis ICD10 Code Diagnosis Note [id number] [facility] [address] [place] [address] 12/09/2007 00:00:00 [id number] [facility] [address] [place] [address] 06/14/2007 00:00:00 [id number] [facility] [address] [place] [address] 05/04/2008 00:00:00 [id number] [facility] [address] [place] [address] 06/10/2008 00:00:00 [id number] [facility] [address] [place] [address] 09/10/2008 00:00:00 [id number] [facility] [address] [place] [address] 05/25/2009 00:00:00 [id number] [facility] [address] [place] [address] 06/14/2009 00:00:00 [id number] [facility] [address] [place] [address] 08/09/2009 00:00:00 [id number] [facility] [address] [place] [address] 12/24/2009 00:00:00 [id number] [facility] [address] [place] [address] 02/21/2010 00:00:00 [id number] [facility] [address] [place] [address] 05/27/2010 00:00:00 [id number] [facility] [address] [place] [address] 07/06/2010 00:00:00 [id number] [facility] [address] [place] [address] 08/18/2010 00:00:00 [id number] [facility] [address] [place] [address] 02/21/2011 00:00:00 [id number] [facility] [address] [place] [address] 07/26/2011 00:00:00 [id number] [facility] [address] [place] [address] 07/26/2011 00:00:00 [id number] [facility] [address] [place] [address] 01/02/2012 00:00:00 [id number] [facility] [address] [place] [address] 02/23/2012 00:00:00 [id number] [facility] [address] [place] [address] 04/11/2012 00:00:00 [id number] [facility] [address] [place] [address] 04/29/2012 00:00:00 [id number] [facility] [address] [place] [address] 03/11/2013 00:00:00 [id number] [facility] [address] [place] [address] 06/03/2013 00:00:00 [id number] [facility] [address] [place] [address] 03/04/2014 00:00:00 [id number] [facility] [address] [place] [address] 06/09/2014 00:00:00 [id number] [facility] [address] [place] [address] 07/29/2014 00:00:00 [id number] [facility] [address] [place] [address] 03/15/2015 00:00:00 [id number] [facility] [address] [place] [address] 11/02/2015 00:00:[id number] [place] [address] 02/22/2016 10:02:32 02/22/2016 10:46:19 Upper respiratory infection [id number] J06.9 Allergic rhinitis 316312 04 J30.9 Gastroesop hageal reflux disease 835454298 K21.9 [id number] Maribeth Marlon[address] [place] [address] 03/03/2016 13:05:43 03/03/2016 15:57:08 Upper respiratory infection 93021656 J06.9 [id number] Maribeth Mason[address] [place] [address] 04/28/2016 08:47:22 04/28/2016 09:19:48 General examination of patient [id number] Z00.00 Hyperlipid emia screening 300404157 Z13.220 Endocrine/ metabolic screening 453707925 Z13.999 [id number] Maribeth Mason[address] [place] [address] 07/11/2016 10:17:46 07/11/2016 10:53:40 Body mass index 20-24 - normal 566791982 Z68.24 Chronic sinusitis 413403 00 J32.9 [id number] Dru Ruelas MD [address] [place] [address] 10/20/2016 11:26:55 10/20/2016 13:27:51 Hand pain 30374988 M79.642 Contact de rmatitis caused by urushiol from [facility] [id number] L25.5 [id number] Emma Ledezma[address] [place] [address] 02/22/2017 13:29:57 02/22/2017 14:25:24 Acute bacterial sinusitis 51166257 J01.90 [id number] Brii Wilkins[address] [place] [address] 04/17/2017 11:10:28 04/17/2017 12:32:28 Influenza-like symptoms 520839913 R68.89 [id number] Briidorcas Wilkins[address] [place] [address] 08/22/2017 08:50:56 08/22/2017 10:59:05 General examination of patient 633480985 Z00.00 Body mass index 25-29 - overweight 649809954 Z68.25 [id number] Saurabh Perez MD [address] [place] [address] 10/26/2017 15:24:59 10/26/2017 16:23:08 Sinusitis 47310718 J32.9 Bee sting 756915044 T63. 91XA Upper resp iratory infection 74318381 J06.9 [id number] Maribeth Mason[address] [place] [address] 02/15/2018 13:37:41 02/15/2018 14:37:17 Cough 72787204 R05 Acute sinusitis 94807733 J01.90 [id number] Brii Wilkins [address] [address] 07/31/2018 10:06:43 07/31/2018 10:38:14 Upper respiratory infection 00326713 J06.9 [id number] Saurabh Perez MD [address] [place] [address] 09/04/2018 08:52:18 09/04/2018 10:40:22 General examination of patient 173220278 Z00.00 Hyperlipid emia screening 190070507 Z13.220 Screening for malignant neoplasm of prostate 214836776 Z12.5 Endocrine/ metabolic screening 946355953 Z13.228 Exercises education, guidance, and counseling 781224390 Z71.82 Dietary ma nagement surveillance 027205469 Z71.3 Tachycardia 0130644 R00. 0 Screening procedure 2012 5006 Z13.9 [id number] Saurabh Perez MD [address] [place] [address] 01/08/2019 15:51:40 01/08/2019 17:19:47 Body mass index 20-24 - normal 778569850 Z68.24 Administra tion of pneumococcal vaccine 66670070 Z23 [id number] Brii Wilkins[address] [address] 01/29/2019 16:14:07 01/29/2019 17:27:43 Active or passive immunization 307661331 Z23 [id number] Emma Ledezma[address] [place] [address] 02/17/2019 10:57:17 02/17/2019 13:00:52 Cervical lymphadenopathy 331069555 R59.0 Muscle pain 90707980 M79 .10 [id number] Emma Ledezma[address] [place] [address] 03/03/2019 11:15:56 03/03/2019 12:49:55 Neck pain 79753638 M54.2 [id number] Emma Ledezma [place] [address] [place] [address] 07/08/2019 09:04:21 07/08/2019 10:05:56 Active or passive immunization 753251416 Z23 Viral screening 72982277 4 Z11.59 [id number] Emma Ledezma [address] [place] [address] 03/09/2020 09:12:14 03/09/2020 10:08:56 Administration of pneumococcal vaccine 88176148 Z23 [id number] De Rizvi MD [address] [place] [address] 07/22/2020 11:11:07 07/22/2020 12:08:28 Acute sinusitis 02323775 J01.90 Rapid COVID and Rapid Influenza tests are negative. Self quarantine until sars-cov-2 , POOJA comes back negative. Discussed saline nasal irrigation . Use Flonase as prescribed . See us or go to the Er should gets worse or develops new symptoms or not better within next 48 to 72 hours. Follow up with us in a week. Otitis media 88542333 H6 6.92 Take Augmentin as prescribed & see us back or go to an (ER) right away should gets worse or develops any new symptoms or complaints or if note better within next 48 to 72 hours. Follow up with us in 1 week [id number] Saurabh Perez MD [address] [place] [address] 09/15/2020 09:10:11 09/15/2020 10:16:00 Sinusitis 70637611 J32.9 Osteoarthritis 087845844 M19.90 History of giant cell arteritis 8122121461 59904 Z86.79 Gastro-eso phageal reflux disease with ulceration 928381588 K21.00 [id number] Brii Wilkins [address] [place] [address] 03/08/2022 08:28:20 03/08/2022 09:31:51 Abscess of skin and/or subcutaneous tissue 10536704 L02.91 Screening for malignant neoplasm of colon 844436370 Z12.11 [id number] Brii Wilkins [address] [place] [address] 05/22/2022 09:24:18 05/22/2022 10:10:37 Upper respiratory infection 36574009 J06.9 [id number] Sandra Mckeon [facility] [address] [place] [address] 08/15/2023 08:35:42 08/15/2023 09:07:29 Actinic keratosis 743291918 L57.0 return for cryo on right tenriism Senile hyperkeratosis 39 6029498 L82.1 Neoplasm of skin 3936349 04 D49.2 left mid back , return for shave to rule out superficia l BCC [id number] Sandra Mckeon [facility] [address] [place] [address] 12/18/2023 12:34:26 12/18/2023 14:40:14 Neoplasm of skin 157660120 D49.2 [id number] Erin Lo [address] [place] [address] 04/07/2024 13:05:56 04/07/2024 13:35:44 Viral screening 930055487 Z11.59 Acute sinusitis 96223447 J01.90 Advised to drink plenty of fluids, run a cool-mist humidifier in room at night, gargle salt water for sore throat, and get plenty of rest. Patient should avoid over-exert ion and reduce exposure to irritants such as smoke, cold, dry air, and dust. Antihistam ine and decongesta nt usage was discussed and recommenda tions made. Begin prescribed medication as written. Cough 40552368 R05.9 Body mass index 25-29 - overweight 712501490 Z68.26 Overweight 161291994 E66 .3 [id number] Erin Lo [place] [address] [facility] [place] [address] 04/10/2024 09:37:05 04/10/2024 10:41:29 Cough 91006543 R05.9 Will call with x-ray results when available. Acute sinusitis 56738520 J01.90 Advised to complete Augmentin as previously prescribed .Advised to drink plenty of fluids, run a cool-mist humidifier in room at night, gargle salt water for sore throat, and get plenty of rest. Patient should avoid over-exert ion and reduce exposure to irritants such as smoke, cold, dry air, and dust. Antihistam ine and decongesta nt usage was discussed and recommenda tions made. Viral screening 55004696 4 Z11.59 Health Concerns Section Related Observation LastModified by Organization Detai ls LastModified Time None Recorded Concern Status LastModified by Organization Details LastModified Time None Recorded Advance Directives Directive N: Payers Insurance Date Sequence Insurance Name Policy Number Policy Jewell Covered Member ID Jewell Member ID Guarantor Name 10/20/2016 1 [place] [id number] Chon Carrasquillo [id number] Chon Carrasquillo 03/30/2023 2 UNSPECIFIED REMIT PAYOR Chon Carrasquillo 07/22/2020 1 [place]PP[place]) [id number] Chon Moreno Hay [id number] Chon Carrasquillo 06/12/2024 NGS NATIONAL - [facility]IC[facility] (MEDICARE) Chon Moreno Hay [id number] Chon Carrasquillo 06/12/2024 1 [place] Chon Moreno Hay [id number] Chon Carrasquillo 07/22/2020 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 Sandra Mckeon, [employer] [address], [place], [address], [facility] - [facility] 08/15/2023 09:08:01 12/18/2023 text/html Chon is a 68 yea r old male that returns to dermatology today for a shave on left mid back. Sandra Mckeon, [employer] [address], [place], [address], [facility] - [facility] 12/18/2023 13:46:25 04/07/2024 text/html Patient presents with c/o headache, sore throat, nasal congestion, and cough x 6 days.Has used Mucinex with some benefit.Denies fever, chest pain, SOA, and n/v/d. Erin Lo, [employer] [address], [place], [address], [facility] - [facility] 04/07/2024 13:39:33 04/10/2024 text/html Patient presents to f/u on acute sinusitis. Reports continues cough, post-nasal drip, headache, chills, fever, and nasal congestion. Patient reports he is taking Augmentin as previously prescribed.Denies SOA, chest pain, sore throat, and n/v/d. Erin Lo, [employer] [address], [place], [address], [facility] - [facility] 04/10/2024 13:02:28
--- OUTSIDE RECORDS SUMMARY | 2024-09-01 10:10 | XMS_ITS | Clinical Summary ---
Author Organization [facility] [place] Address [address] [place] [address] Phone Care Team Providers Care Glue Line Operator Name Role Phone Dru Ruelas MD Primary Care Provider [phone] Allergies Active Allergy Reactions Criticality Noted Date Comments Morphine Other (See Comments) High 03/24/2020 Motion sickness, made me crazy until it wore off Medications predniSONE (DELTASONE) 10 mg Oral TabletIndications: giant cell arteritis Take 10 mg by mouth every morning. Indications: inflammation of the artery in the anglican area Active lisinopriL (PRINIVIL;ZESTRIL) 20 mg Oral Tablet tablet Take 20 mg by mouth every morning. Active pantoprazole (PROTONIX) 40 mg Oral Tablet, Delayed Release (E.C.) Take 40 mg by mouth every morning. Active aspirin 325 mg Oral Tablet Take 325 mg by mouth nightly. Active Cholecalciferol, Vitamin D3, 50 mcg (2,000 unit) Oral Capsule Take 1 Cap by mouth every morning. Active methylPREDNISolone (MEDROL DOSPACK) 4 mg Oral Tablets, Dose PackIndications:Bárbara travis carpal tunnel syndrome Follow package directions 21 Tablet 03/26/19 24 Active diclofenac (VOLTAREN) 1 % Top GelIndications:Mer mendoza osteoarthritis of right knee Apply 2 g topically 2 times daily. 100 g 2 02/12/20 24 Active Active Problems Problem Noted Date Diagnosed Date Glenoid fracture of shoulder, left, sequela 02/27 Surgical History Surgery Date Site/Laterality Comments CHOLECYSTECTOMY ~2010 KNEE SURGERY 02/27/2004 - 02/25/2005 Right arthroscopy KNEE SURGERY 02/26/1999 - 02/26/2000 Left arthroscopy COLONOSCOPY SHOULDER ARTHROTOMY 03/26/2020 Left LEFT SHOULDER ANTERIOR GLENOID OPEN REDUCTION INTERNAL FIXATION, PLACEMENT OF TIBIAL ALLOGRAFT TO ANTERIOR GLENOID, REMOVAL OF BONE FRAGMENTS; Surgeon: Douglas Ma DO; Location: [facility]; Service: Orthopedics Medical devices from this surgery are in the Medical Devices section. Medical History Medical History Date Comments History of snoring Hypertension Giant cell arteritis (HCC) 06/2019 had s evere headaches back of head right side, had black outs, could not see out of right eye. eye issues resolved since on prednisone, sees wool hat finisher Emily DAN in [place], [place] Heartburn Motion sickness with morphine Family History Medical History Relation Name Comments Heart Disease Father High Blood Pressure Father High Cholesterol Father Heart Disease Mother High Blood Pressure Mother High Cholesterol Mother Anesth Problems Neg Hx Relation Name Status Comments Father Alive Mother Alive Social History Tobacco Use Types Packs/Day Years Used Date Smoking Tobacco: Former Cigarettes Smokeless Tobacco: Former Tobacco Cessation:Counseling Given: Not Answered Alcohol Use Standard Drinks/Week Comments Yes 12 (1 standard drink = 0.6 oz pu re alcohol) Sex and Gender Information Value Date Recorded Sex Assigned at Not on file Legal Sex Male 8:50 PM EDT Gender Identity Not on file Sexual Orientation Not on file Obstetrics History Last Filed Vital Signs Vital Sign Reading Time Taken Comments Blood Pressure 131/84 03/26/2020 3:57 PM EST Pulse 52 03/26/2020 3:57 PM EST Temperature 36.1 C (97 F) 03/26/2020 3:57 PM EST Respiratory Rate 14 03/26/2020 3:57 PM EST Oxygen Saturation 97% 03/26/2020 3:57 PM EST Inhaled Oxygen Concentration - - Weight 79.4 kg (175 lb) 02/12/2024 10:17 AM EST Height 177.8 cm (5' 10 ) 02/12/2024 10:17 AM EST Body Mass Index 25.11 02/12/2024 10:17 AM EST Plan of Treatment Health Maintenance Due Date Last Done Comments Wellness Exam Medicare 1958 Hepatitis C Screening 1973 Colonoscopy 2000 FIT 2000 Sigmoidoscopy 2000 Virtual Colonography 2000 Zoster (3 of 3) 09/02/2019 07/08/2019, 01/29/2019, 03/20/2016 AAA Screening 2020 COVID-19 Vaccine (1 - 2023-2 5 season) 2023 Influenza Vaccine (#1) 2024 , 11/26/2018, 01/18/2018 Pneumococcal Vaccine 50+ (3 of 3 - PCV20 or PCV21) 03/09/2025 03/09/2020, 01/08/2019 Cologuard 03/23/2025 03/23/2022 Colon Cancer Screening 03/23/2025 DTaP/TDaP/Td (2 - Td or Tdap) 03/20/2026 03/20/2016 Hepatitis B Vaccine Aged Out No longe r eligible based on patient's age to complete this topic Meningococcal B Vaccine Aged Out No l onger eligible based on patient's age to complete this topic Medical Devices Implanted Type Area Network Control Supervisor Device Identifier Shelf Expiration Date Model / Serial / Lot Graft Bone Left Distal Tibia Allograft Frozen - [id number] Implanted:Qty : 1 on 03/26/2020 by Douglas Ma DO at [facility] Left: Shoulder MUSCULOSKELETAL TRANSPLANT FND 08/25/2024 [id number] / [id number] / [id number] Screw 34mm Latarjet Titanium Sterile - [id number] Implanted:Qty : 1 on 03/26/2020 by Douglas Ma DO at [facility] Left: Shoulder DEPUY MITEK 03/28/2021 [id number] / / [id number] Screw 34mm Latarjet Titanium Sterile - [id number] Implanted:Qty : 1 on 03/26/2020 by Douglas Ma DO at [facility] Left: Shoulder DEPUY MITEK 08/25/2024 [id number] / / [id number] [place] 4.5mm Size 2 36in Healix Br Dynacord 3 Suture - [id number] Implanted:Qty : 1 on 03/26/2020 by Douglas Ma DO at [facility] Left: Shoulder J&J:ETHICON:MITEK PRDT 07/26/2022 [id number] / / [id number] Insurance [employer] PLAN MEDICARE [place] PART A AND B Care Teams Glue Line Operator Relationship Specialty Start Date End Date Dru Ruelas MD PCP - General 06/22/09
--- OUTSIDE RECORDS SUMMARY | 2024-09-01 10:10 | XMS_ITS | Referral Summary ---
Author Organization [facility] Address [address] [facility] [address] Care Team Providers Care Consulting Technical Director Name Role Phone Dru Ruelas MD Primary Care Provider [phone] Medications esomeprazole (NEXIUM) 20 MG CPDR Take 20 mg by mouth every morning before breakfast. Active Active Problems Problem Noted Date Diagnosed Date Dupuytren's contracture 11/09/2016 Social History Tobacco Use Types Packs/Day Years Used Date Smoking Tobacco: Never Smokeless Tobacco: Never Alcohol Use Standard Drinks/Week Comments Yes 0 (1 standard drink = 0.6 oz pur e alcohol) Sex and Gender Information Value Date Recorded Sex Assigned at Not on file Legal Sex Male 9:37 AM EDT Gender Identity Not on file Sexual Orientation Not on file Last Filed Vital Signs Vital Sign Reading Time Taken Comments Blood Pressure 130/74 11/08/2016 10:10 AM EDT Pulse - - Temperature - - Respiratory Rate - - Oxygen Saturation - - Inhaled Oxygen Concentration - - Weight 79.4 kg (175 lb) 11/08/2016 10:02 AM EDT Height 177.8 cm (5' 10 ) 11/08/2016 10:02 AM EDT Body Mass Index 25.11 11/08/2016 10:02 AM EDT Plan of Treatment Not on file Insurance [employer] ALL OTHERS NOT MEDICARE Care Teams Consulting Technical Director Relationship Specialty Start Date End Date Dru Ruelas MD PCP - General Family Medicine 10/23/16
--- OUTSIDE RECORDS SUMMARY | 2024-09-01 10:10 | XMS_ITS | Clinical Summary ---
Author Organization [facility] Address [address] [facility] [place] [place] [address] Care Team Providers Care Infant Teacher Name Role Phone Dru Ruelas MD Primary Care Provider [phone] Medications esomeprazole (NEXIUM) 20 MG CPDR Take [...] 11/08/2016 10:02 AM EDT Plan of Treatment Health Maintenance Due Date Last Done Comments Hepatitis C Screening 1955 DTap,Tdap,and Td (1 - Tdap) 1966 Colonoscopy 2000 PSA YEARLY 2005 Pneumococcal 50+ (1 of 1 - PCV) 2005 Shingrix (#1) 2005 Influenza Vaccine (Season Ended) 2024 RSV Vaccine (60+ or ) (1 - 1-dose 75+ series) 2030 HPV Aged Out No longer eligi ble based on patient's age to complete this topic Meningococcal conjugate bg nt 4 (MCV4) Aged Out No longer eligible b ased on patient's age to complete this topic RSV Immunization (<20 months) Aged Out No longer eligible based on patient's age to complete this topic Insurance [facility] ALL OTHERS NOT MEDICARE Care Teams Infant Teacher Relationship Specialty Start Date End Date Dru Ruelas MD PCP - General Family Medicine 10/23/16
[2024-09-02 12:23] LABS: Testosterone,Total 364 ng/dL (264-916)
== END 2024-08-28 23:59 | disposition home or self-care (01) ==
LOC: LAB.DROPOF 09-01 10:02
PROVIDERS: PCP Family Medicine; Visit Provider Family Medicine
DX: I10 Essential (primary) hypertension (principal); Z11.59 Encounter for screening for other viral diseases
CPT/HCPCS: 80053; 80061; 84403; 85025; 86803; 87389